=== PATIENT | male | born 1935 | race Caucasian/White ===

== ENCOUNTER 2017-05-20 08:11 | Outpatient (CLI) | payer MEDICARE ==
--- NOTE | 2017-05-20 10:17 | PRG ---
DATE OF SERVICE: 05/20/2017 SUBJECTIVE: An 81-year-old male returns today for left heel ulceration, had been seeing Dr. Ellis for the last several weeks, has been getting Promogran, Silverlon and Mepilex dressing changes, has been wearing an offloading boot, has been seeing some improvement in the wound size. Denies any na usea, vomiting, fevers or chills. PHYSICAL EXAMINATION: Ulceration of the left plantar lateral heel measures 2 cm x 1.3 cm x 0.1 cm. It has 50% slough and 50% granulation tissue. There is no purulent drainage. Wound does not probe to deeper tissues or bone. No periwound erythema, edema or warmth. ASSESSMENT: Pressure ulceration unstageable to the left heel. PLAN: 1. Full thickness debridement of the subcutaneous tissue layer, removing all biofilm and nonviable tissue within the wound base down to a bleeding granular wound base. Patient tolerated the procedur e well. 2. We are going to continue with the Promogran, Silverlon, and Mepilex dressing changes twice a wee k and he will follow back with me in 2 weeks.
== END 2017-05-20 08:12 | disposition home or self-care (01) ==
LOC: WCC 08:11
PROVIDERS: ATTEND Podiatrist Foot & Ankle Surgery
DX: L89.620 Pressure ulcer of left heel, unstageable (principal)
CPT/HCPCS: 11042

== ENCOUNTER 2017-06-03 10:06 | Outpatient (CLI) | payer MEDICARE ==
--- NOTE | 2017-06-03 12:19 | PRG ---
DATE OF SERVICE: 06/03/2017 SUBJECTIVE: An 81-year-old male returns today for left heel ulceration. He has been doing well wit h dressing changes, no concern at this time. He has continued to wear boot for offloading purposes. OBJECTIVE: Left heel ulceration has healed. There is a well-adhered scab to the heel measuring 1 c m diameter, but no underlying ulceration. No drainage, no periwound erythema or edema. ASSESSMENT: Left heel pressure ulceration, unstableable, now stage 0 or 1 pre-ulcerative area. PLAN: 1. The patient to continue with offloading boot whenever supine. 2. Moisturizing lotion and open to the air on the wound site. 3. The patient will return as needed.
[2017-06-03] MEDS ORDERED: Sodium Chloride 0.9% 15 ML NEB ONE (16:23)
== END 2017-06-03 10:07 | disposition home or self-care (01) ==
LOC: WCC 10:06
PROVIDERS: ATTEND Podiatrist Foot & Ankle Surgery
DX: L89.620 Pressure ulcer of left heel, unstageable (principal)
CPT/HCPCS: 36416; 97602; A4218

== ENCOUNTER 2017-06-09 08:15 | Outpatient (CLI) | payer MEDICARE ==
--- NOTE | 2017-06-09 10:09 | PRG ---
DATE OF SERVICE: 06/09/2017 HISTORY: Mr. Mathew Perkins is a very pleasant 81-year-old gentleman accompanied by his darby r who [facility] for evaluation of an ulceration of the right lateral lower leg. Previously for the ulceration the patient received treatment with Promogran, Silverlon, Webril, and the 3M Coban 2 layer compression system. The patient's daughter states that Mr. Perkins developed a brasions of the right foot from compression wraps applied by Home Health. The patient has no other complaints today. He denies any fever or chills. PHYSICAL EXAMINATION: VITAL SIGNS: Temperature 98.4, pulse 70, respirations 18, blood pressure 107/57. Accu-Chek 142. EXTREMITIES: An ulceration of the right lateral lower leg is present which measures approximately 0 .9 x 0.5 cm. The dimensions of the wound at the time of the patient's visit on 04/27/2017 were appr oximately 1.2 x 0.5 cm. Granulation tissue is present within the wound margins. Nonviable tissue p resent within the wound margins was debrided with an excisional full-thickness debridement. No puru lent drainage is associated with the wound. No erythema of the skin surrounding the wound is presen t. No maceration of the skin of the periwound is noted. A posterior tibial pulse is palpable on th e right. No significant edema of the right foot or lower leg is present on exam today. ASSESSMENT AND PLAN: 1. Right lateral lower leg ulceration. Promogran, Silverlon, Webril, and the 3M Coban two-layer co mpression system will be applied to the right lateral lower leg ulceration today. Orders will be tr ansmitted to Home Health for the compression wrap to be discontinued in 1 week. At this time, the p atient is to receive dressing changes of Promogran, Silverlon and Mepilex border 3 times per week af ter cleansing and irrigation. The patient and his daughter understand and are in agreement with the preceding treatment plan. The patient's daughter will contact the clinic to schedule an appointmen t if the ulceration fails to heal with the preceding dressing changes. 2. Diabetes mellitus. The patient's Accu-Chek in clinic today is 142. The patient has been remind ed that for optimal wound healing, his blood glucoses should remain below 150. 3. Atrial fibrillation. 4. Congestive heart failure. 5. Coronary artery disease. 6. Aortic stenosis. 7. Tricuspid regurgitation. 8. Nephrolithiasis. 9. Chronic kidney disease. 10. Anemia. 11. Protein calorie malnutrition. 12. Benign prostatic hypertrophy. 13. History of gastroesophageal reflux disease.
== END 2017-06-09 08:16 | disposition home or self-care (01) ==
LOC: WCC 08:15
PROVIDERS: ATTEND Family Medicine
DX: E11.622 Type 2 diabetes mellitus with other skin ulcer (principal); L97.919 Non-pressure chronic ulcer of unspecified part of right lower leg with unspecified severity; E11.22 Type 2 diabetes mellitus with diabetic chronic kidney disease; N18.9 Chronic kidney disease, unspecified; I50.9 Heart failure, unspecified; I48.91 Unspecified atrial fibrillation; I35.0 Nonrheumatic aortic (valve) stenosis; I25.10 Atherosclerotic heart disease of native coronary artery without angina pectoris; I07.1 Rheumatic tricuspid insufficiency; N20.0 Calculus of kidney; E46 Unspecified protein-calorie malnutrition; N40.0 Benign prostatic hyperplasia without lower urinary tract symptoms; Z87.898 Personal history of other specified conditions
CPT/HCPCS: 11042

== ENCOUNTER 2017-07-16 00:13 | Emergency (ER) | payer MEDICARE | END 2017-07-16 01:25 | disposition home or self-care (01) | LOC: SCSER 00:13 | DX: T83.091A Other mechanical complication of indwelling urethral catheter, initial encounter (principal); D50.9 Iron deficiency anemia, unspecified; E11.9 Type 2 diabetes mellitus without complications; E78.5 Hyperlipidemia, unspecified; I48.91 Unspecified atrial fibrillation; I50.9 Heart failure, unspecified; K21.9 Gastro-esophageal reflux disease without esophagitis; N18.9 Chronic kidney disease, unspecified; N40.0 Benign prostatic hyperplasia without lower urinary tract symptoms | CPT/HCPCS: 99283 ==

== ENCOUNTER 2018-03-12 11:27 | Emergency (ER) | payer MEDICARE | END 2018-03-12 12:42 | disposition short-term general hospital (02) | LOC: SCSER 11:27 | DX: T83.091A Other mechanical complication of indwelling urethral catheter, initial encounter (principal); N40.0 Benign prostatic hyperplasia without lower urinary tract symptoms; R31.9 Hematuria, unspecified; K21.9 Gastro-esophageal reflux disease without esophagitis; D50.0 Iron deficiency anemia secondary to blood loss (chronic); N18.9 Chronic kidney disease, unspecified; I48.91 Unspecified atrial fibrillation; E11.9 Type 2 diabetes mellitus without complications; E78.5 Hyperlipidemia, unspecified ==

== ENCOUNTER 2018-03-12 12:43 | Inpatient (IN) | payer MEDICARE ==
[2018-03-12] MEDS ORDERED: Lidocaine 2% Jelly 5 ML TUBE ONE (13:42)
[2018-03-12] MEDS ORDERED: cefTRIAXone\\ROCEPHIN 1 GM VIAL ONE (14:23)
[2018-03-12 15:14] LABS: Hemoglobin 11.5 g/dL (14.0-18.0); Mean Corpuscular HGB CONC 33.7 g/dL (32.0-36.0); Mean Corpuscular Hemoglobin 28.9 pg (27.0-31.0); Mean Corpuscular Volume 85.7 fL (78.0-98.0); Mean Platelet Volume 8.2 fL (7.4-10.4); Platelet Count 200 thou/uL (130-400); RBC Distribution Width 15.3 % (11.5-14.5); Red Blood Cell (RBC) Count 3.98 mill/uL (4.70-6.10); White Blood Cell (WBC) Count 2.5 thou/uL (4.8-10.8)
--- NOTE | 2018-03-12 15:21 | RAD ---
FRONTAL VIEW CHEST: COMPARISON: 01/28/17. INDICATION: Fever and tachycardia. FINDINGS: Cardiac silhouette is prominent in size, accentuated by portable technique. No lobar consolidation o r effusion. No discrete pneumothorax. There is osseous degenerative change and vascular calcificati on. IMPRESSION: No focal consolidation. POS: [facility]
[2018-03-12 15:23] LABS: Bilirubin Moderate (Negative); Blood, Urine Large (Negative); Clarity TURBID (Clear); Glucose, Urine (Dipstick) Negative (Negative); Leukocyte Large (Negative); Nitrite Negative (Negative); Protein, Urine (Dipstick) 300 mg/dL (Neg-Trace)
[2018-03-12] MEDS ORDERED: Acetaminophen 500 MG TAB ONE (15:23)
[2018-03-12 15:25] LABS: Bacteria/HPF 2+ HPF (None Seen)
[2018-03-12 15:26] LABS: Pathc Cast-AUWi Flag 43.61 (0-2.49); Yeast-AUWi Flag 514.9 (0-25.0)
[2018-03-12 15:33] LABS: Anisocytosis SLIGHT = 6-15 cells (100X) (0-5/hpf); Band 16 % (5-11); Eosinophils 1 % (0-10); Hypochromia SLIGHT = 6-15 cells (100X) (0-5/hpf); Lymphocytes 3 % (21-51); MDiff Complete? YES; Monocytes 1 % (0-10); Neutrophil 79 % (42-75); PLT Morphology Comment Appears Adequate
[2018-03-12 15:33] LABS: Hyaline Casts/LPF NONE SEEN LPF (0-3 Hyaline); Manual Microscopic Reviewed? No Path Casts Seen; RBC/HPF GREATER THAN 50-TNTC HPF (0-3); Yeast-All Forms None Seen HPF (None Seen)
[2018-03-12 15:34] LABS: ALT (SGPT) 41 U/L (8-55); AST (SGOT) 44 U/L (5-34); Albumin 3.8 g/dL (3.4-4.8); Alkaline Phosphatase 106 U/L (40-150); Anion Gap 17 mmol/L (10-20); BUN (Urea Nitrogen) 20 mg/dL (8.4-25.7); Calc. Creatinine Clearance 0 mL/min (70-130); Carbon Dioxide 17 mmol/L (23-31); Chloride 106 mmol/L (98-107); Estimated GFR-MDRD 41; Globulin 3.8 g/dL (2.4-3.5); Glucose 169 mg/dL (83-110); Potassium 4.3 mmol/L (3.5-5.1); Protein, Total 7.6 g/dL (5.8-8.1); Sodium 136 mmol/L (136-145)
--- NOTE | 2018-03-12 16:10 | CON ---
DATE OF CONSULTATION: 03/12/2018 CONSULTING PHYSICIAN: Ar Lara M.D. CONSULTED PHYSICIAN: Javi Arambula M.D. REASON FOR CONSULTATION: Urinary retention with difficulty obtaining a catheterization. HISTORY OF PRESENT ILLNESS: Mr. Perkins is an 82-year-old white male who is currently a patient of [facility]. He has longstanding prostate problems and urinary retention. He is able to only urinate small amounts on his own, but due to significant issues with urinary retention and prior episodes of gross hematuria, he has had a catheter placed and has been managed with an indwelling Payne catheter for the past 2 years which has been changed by home health nursing every 30 days. Last night, the oh brown noted that he did not have any urine output in his bag over the course of the entire day. Home health nursing had come by this morning to attempt to flush the catheter, but they were not able to irrigate adequately. Therefore, they attempted to change the catheter; however, the catheter would n ot go back into the bladder. After several attempts they transferred him to the emergency room in [facility] where the nursing staff there attempted to place a Payne catheter, after 3 or 4 attempt s or blood starting to appear at the meatus, I was consulted for further assistance with catheter abundio cement. I recommended he be transferred from the [place] [facility] to the Main ER at [facility] in case he needs a cystoscopy. Upon his arrival in my discussion with the patient, he sta nisha that he is not having any significant bladder pain. He is having some back discomfort and some a bdominal discomfort and states he is cold and a little nauseated, but otherwise is not really complai ector of any other significant symptoms or issues. He denies any bladder spasms. He did spontaneousl y void once between being discharged to the ER in [place] and coming here, but he states he h ad no control or volitional void and it just came out on its own. There were discussions with Dr. Mejia bullock about possibly attempting a voiding trial in the future versus placement of a suprapubic cathet er. ALLERGIES: None. CURRENT MEDICATIONS: No medications on file. PAST MEDICAL HISTORY: 1. Gastroesophageal reflux disease. 2. Benign prostatic hypertrophy. 3. Urinary retention. 4. Iron deficiency anemia. 5. Chronic kidney disease. 6. Angina. 7. Arrhythmia. 8. Atrial fibrillation. 9. Type 2 diabetes. 10. Hyperlipidemia. 11. Aortic valve stenosis. 12. Coronary artery disease. PAST SURGICAL HISTORY: 1. Cardiac stents. 2. Removal of kidney stones. SOCIAL HISTORY: The patient denies alcohol abuse or illicit drug use or smoking. He lives with his daughter. FAMILY HISTORY: Noncontributory. REVIEW OF SYSTEMS: A 12-point review of systems is unremarkable other than what was commented on the HPI. PHYSICAL EXAMINATION: VITAL SIGNS: Temperature 98.5, pulse 84, respirations 20, blood pressure 152/79, saturation 100% on room air. GENERAL: Appears cold, but otherwise appears stated age, is communicative and alert. HEENT: Normocephalic, atraumatic. Large price. Sclerae nonicteric. Pupils symmetric and round. T rachea midline. Moist mucous membranes. CARDIOVASCULAR: Irregularly irregular rhythm, normal rate, normal S1 and S2. Symmetric pulses. CHEST: No increased work of breathing. Symmetric expansion of lungs clear anteriorly. ABDOMEN: Soft, mildly tender to palpation diffusely. No rebound, guarding or peritoneal signs. No organomegaly. Nondistended. No obvious hernias. GENITOURINARY: Patient is uncircumcised. There is a large amount of blood at the meatus. Testes ar e bilaterally descended. Scrotum without edema. DAYANNA is deferred at this time. EXTREMITIES: No clubbing, cyanosis or edema. MUSCULOSKELETAL: No joint deformities or joint erythema noted. The patient has adequate range of mo tion. NEUROLOGIC: Cranial nerves II-XII appear grossly intact. No focal sensory or motor deficits identif ied. SKIN: Warm, dry, somewhat cool. No rashes or lesions. No pallor. PSYCHIATRIC: Alert and oriented x2. Appropriate mood and affect. LABORATORY AND X-RAY FINDINGS: No labs are currently taken at this time. PROCEDURE: After noting that the patient had blood at his meatus, I did not recommend attempted cath eter placement attempts to blindly. I recommended a cystoscopic-guided catheterization. I discussed this with the family and the patient. They have agreed to proceed forward. The patient was prepped and draped in usual sterile fashion. A flexible cystoscope was guided with ease through the urethra . The penile urethra was unremarkable. The bulbar urethra showed a large blood clot with a 6 o'cloc k midline split and tear indicating a false passage. The urethral sphincter was noted to be anterior to this and the cystoscope was guided through this. The prostate was hypertrophic. The bladder antonella wed significant trabeculation and cellules. A full cystoscopy could not be performed as the bladder could not be distended adequately secondary to patient having severe bladder spasms. Once the cystos cope was in the bladder, an Amplatz Super Stiff wire was placed through the cystoscope into the bladd er. The cystoscope was then removed and an 18 [employer] tip catheter was advanced over the Sup er Stiff wire to the bladder with ease. The Super Stiff wire was then removed and 10 mL of sterile w ater placed into the balloon. There was return of rakesh colored urine which was affixed to the patie nt's leg with a Andrea strap. The patient tolerated the procedure well. ASSESSMENT AND PLAN: This is an 82-year-old white male with urinary retention, presumably secondary to benign prostatic hypertrophy with false passage causing the bleeding and inability to replace the catheter. Now that his catheter has been replaced, I would recommend prophylaxis with Rocephin 1 gra m IV as a single dose. He can be given trospium 20 mg p.o. b.i.d. for bladder spasms and tramadol fo r pain control. He can be discharged home so long as there is no other gastrointestinal other medica l issues that warrant investigation per the ER team. He can follow up with Dr. Meyers but his joanne ter should be good for 30 days. If the patient fails or future void trial, I would give strong consi deration to a suprapubic tube as given that he has had a history of false passage. Now there is risk for scar tissue and recurrent false passage again in the future.
[2018-03-12] MEDS ORDERED: Piperacillin/Tazobactam 4.5 GM VIAL ONE (16:13)
[2018-03-12 16:29] LABS: Troponin I Less than 0.010 ng/mL (< 0.028)
[2018-03-12 17:52] VITALS: BMI 30.3
[2018-03-12] MEDS: Sodium Chloride 0.9% 1,000 ML IV SCH (19:47)
[2018-03-12] MEDS: Amiodarone 200 MG TAB PO SCH (21:48)
[2018-03-12] MEDS: Tamsulosin HCl 0.4 MG CAP PO SCH (21:48)
[2018-03-12] MEDS: Montelukast Sodium 10 mg Tablet PO SCH (21:48)
[2018-03-12] MEDS: Atorvastatin Calcium 20 MG TAB PO SCH (21:48)
[2018-03-12] MEDS: Famotidine 20 MG TAB PO SCH (21:49)
[2018-03-12] MEDS: Apixaban 2.5 MG TAB PO SCH (21:49)
--- NOTE | 2018-03-12 22:48 | ULT ---
RENAL ULTRASOUND: Comparison: 11-18-16 History: Hematuria, chronic kidney disease. Evaluate for obstruction. Technique: Multiplanar grayscale and color doppler images were obtained in a renal ultrasound. FINDINGS: There are anechoic cysts in both kidneys. The largest is seen on the right measuring 3.9 cm in size. There is no evidence of hydronephrosis. There appears to be a Staghorn calculus in the right kidney m easuring 1.3 cm in size. The kidneys measure 11.7 and 11.4 cm in length on the right and left, respec tively. A Payne catheter decompresses the urinary bladder. IMPRESSION: 1. Bilateral renal cysts. 2. Nonobstructing right renal calcification. POS: [facility]
[2018-03-12] MEDS: Piperacillin/Tazobactam 3.375 GM in Sodium Chloride 0.9% 100 ML IVPB SCH (23:37)
[2018-03-12] MEDS: Acetaminophen 325 MG TAB PO PRN (23:37)
--- NOTE | 2018-03-13 01:42 | HP ---
DATE OF SERVICE: 03/12/2018 CHIEF COMPLAINT: Abdominal pressure. HISTORY OF PRESENT ILLNESS: This is an 82-year-old male with history of atrial fibrillation and coronary artery disease, on full anticoagulation; heart failure of unknown severity; kidney stones; chronic kidney disease stage 3-4, by chart review; anemia; BPH with a chronic Shaw catheter; GERD; who presents to the emergency room with some abdominal pressure. All the history is obtained from the patient's daughter as the patient reports he is feeling alright now. He is able to tell me that he has not felt well due to abdominal pressure and estimates for a few weeks. Per his daughter, she notes that yesterday something happened with his catheter (some type of trauma, perhaps while the patient was sleeping) and there was blood inside the catheter bag. The patient called to her and she visualized that urine was still flowing, and there was no significant bleeding. She checked on him last night and the urine continued to drain and the catheter was flushed with normal anticipated return. This morning, there was no output in the Shaw bag and the patient was complaining of abdominal pressure. She flushed it with 60 mL of fluid and had return of about 500 mL of urine and the patient's abdominal pressure was relieved. At 9:00 a.m., the patient called his daughter and complained of his stomach was hurting and she again flushed it the shaw catheter with return of 500 mL. This did not seem quite right, and so she flushed again and there was no return. She called the [facility] to come replace the catheter. Around 10:30, they removed the catheter and attempted placement of a new one, followed by visualizing about 30 mL of mackenzie blood and pain prior to filling the catheter balloon. The catheter was then removed and the patient was directed to the emergency room. The patient started off at [facility] with the attempt of placement of a Shaw catheter. This was unsuccessful and in consultation with Dr. Arambula, the patient was transferred to [facility] in [place]. Dr. Arambula was able to place a catheter, and visualized the false passage that was responsible for the bleeding. While in the emergency room, the patient was found to be febrile and tachycardic with a temperature rate of 102.5 and Hospitalist called for admission for concern of sepsis. The patient's daughter denies any change of his behavior, states that he has been eating and drinking fluids, and that he is acting appropriately. Today, she noticed that he was 'off', mistaking his age which is unusual, as she states he is normally very sharp. She also noted here in the emergency room, chills. None of this was seen prior to today. His last history of a UTI was approximately a year ago. In the emergency room, the patient treated with Rocephin 1 gram IV, of which the daughter notes that at least some infiltrated into his right arm, Tylenol 1 gram, 1.5 liters of normal saline and 4.5 grams of Zosyn and Hospitalist called for admission. PAST MEDICAL HISTORY: Confirmed with the patient's daughter, 1. Coronary artery disease with history of stent placement. 2. Heart failure, unknown severity. 3. Atrial fibrillation, on full anticoagulation. 4. Diabetes mellitus. 5. Aortic stenosis. 6. Nephrolithiasis. 7. Chronic kidney disease, stage 3-4. 8. Anemia. 9. Benign prostatic hypertrophy with chronic Shaw catheter. History of hematuria secondary to the shaw catheter that has always resolved without stopping his eliquis. 10. Gastroesophageal reflux disease. 11. Chronic left shoulder pain. 12. Presbycusis. 13. Weakness, uses a wheelchair. 14. Dyslipidemia. PAST SURGICAL HISTORY: 1. Nephrolithiasis. 2. Tonsillectomy. 3. Cardioversion for atrial fibrillation about 6 months ago. ALLERGIES: No known drug allergies. MEDICATIONS: Confirmed with the list brought in by the daughter, 1. Carvedilol 3.125 mg b.i.d. 2. Slow-Mag 64 mg b.i.d. 3. Metformin 500 mg b.i.d. 4. Vitamin C 500 mg b.i.d. 5. Eliquis 5 mg b.i.d. 6. Protonix 40 mg daily. 7. Aspirin 81 mg daily. 8. Pepcid 20 mg b.i.d. 9. Ferrous sulfate b.i.d. 10. Multivitamin at bedtime. 11. Flomax 0.4 mg at bedtime. 12. Folic acid 1 mg at bedtime. 13. Vitamin B12 of 1000 mcg at bedtime. 14. Singulair 10 mg at bedtime. 15. Probiotic at bedtime. 16. Amiodarone 200 mg at bedtime. 17. Lipitor 20 mg at bedtime. REVIEW OF SYSTEMS: The patient without any complaint and stated negative to all review of systems. I am uncertain of the accuracy of this. Per his daughter only as noted above. SOCIAL HISTORY: The patient lives with his daughter, Melanie, who is his surrogate decision maker. He is a FULL CODE. No alcohol or tobacco. FAMILY HISTORY: Significant for diabetes. PHYSICAL EXAMINATION: VITAL SIGNS: Temperature 102.5, pulse 104, respirations 20, saturations 98%, blood pressure 115/67. GENERAL: He is awake, alert and responsive, in no apparent distress. HEENT: His pupils are equal and round. Extraocular movements are intact. Oral mucosa is pink and moist. He has a denture plate on the top gums, but not on the bottom. He is edentulous. NECK: Supple, nontender. LYMPHATICS: No palpable cervical or supraclavicular lymphadenopathy. LUNGS: Clear to auscultation. No audible wheezing, rhonchi or rales. HEART: Normal S1, S2, regular rate and rhythm, no audible murmurs. ABDOMEN: Soft with present bowel sounds. Mild tenderness to palpation in the suprapubic area. No rebound or guarding and no palpable abnormalities. EXTREMITIES: No clubbing, cyanosis, or edema. MUSCULOSKELETAL: He does have a laterally deviated left foot, which he reports is secondary to a history of trauma. The patient does have an area of induration in his right forearm secondary to infiltration of Rocephin. No erythema. NEUROLOGIC: No focal deficits. LABORATORY DATA AND IMAGIN. CBC: 2.5, 11.5, 34.1, 200. 2. Renal panel: 136, 4.3, 106, 17, 20, 1.61, 169. 3. Lactic acid is 4.7. 4. Total bilirubin 1, AST 44, ALT 41, alkaline phosphatase 106, total protein 7.6, albumin 3.8. 5. Urine shows protein, ketones, moderate bilirubin, large leukocyte esterase, greater than 50 red blood cells and white blood cells, 2+ bacteria. 6. Chest x-ray personally reviewed is negative for acute process. 7. EKG personally reviewed, sinus rhythm, tachycardic to 113, flattened T waves , no ST change. It does have a prolonged QT interval with a QT corrected of 455. 8. Urine culture from 2017 - E coli vega-sensitive, and Enterococcus and a gram negative marjan only resistant to tetracycline. IMPRESSION: 1. Sepsis attributed to urinary tract infection in this patient with a chronic indwelling Shaw catheter and recent obstruction. 2. Catheter obstruction with urinary retention, and hematuria secondary to trauma. 3. Prolonged QT interval. 4. Leukopenia - unknown etiology 5. Anemia - likely secondary to chronic kidney disease. 6. History of atrial fibrillation, on chronic anticoagulation. 7. History of congestive heart failure, unknown severity. 8. Coronary artery disease with history of stent. 9. Chronic kidney disease, stage 3-4, current labs are consistent with May, although creatinine is higher than it was a year ago. 10. Diabetes mellitus, unknown control. 11. Dyslipidemia. 12. Chronic shoulder pain. 13. Weakness and wheelchair use. 14. Presbycusis. 15. Rocephin infiltration and induration of the right forearm. PLAN: 1. Admission to the hospital. 2. Monitoring on telemetry, repeating the lactic acid, continuing the Zosyn for Pseudomonas coverage and possible other multidrug resistant bacteria given the indwelling Shaw catheter. 3. Monitoring the blood and urine cultures, the urine output and the hematuria - urine is currently medium brown in color with red blood cell sediment. 4. With any decompensation, we will need second antibiotic. Will continue zosyn at higher sepsis dosing- adjusted for his renal function. 5. Avoiding medications that can prolong the QT interval and monitor on telemetry. 6. Renally dosing his Eliquis discussed this with his daughter as his creatinine is greater than 1.5 and age greater than 80 indicates 2.5 mg b.i.d. Discussed with the patient's daughter that this may need to be held if the hematuria persists/worsens or any bleeding concerns. 7. Continuing his home medications with hold parameters on the carvedilol. 8. IV fluid hydration as the patient's urine is quite dark, we will obtain an ultrasound of his kidneys in addition we will obtain an echocardiogram of his heart to try and understand or characterize current systolic function. 9. Follow his creatinine which is consistent with May this year, but higher than a year ago and recheck lactic acid level again in 6 hours. 10. Follow the leukopenia - unknown if it is lower now than in the past due to infection or another reason. Trend hemoglobin and monitor for hematuria. 11. Continuing his other home medications as ordered. 12. Monitoring area on right forearm to be outlined from david doyle. RN called pharmacy and no anticipated problem from the medication. 13. Deep venous thrombosis prophylaxis. He is fully anticoagulated with Eliquis. 14. Gastrointestinal prophylaxis not indicated. He is on famotidine and Protonix and we will continue those. 15. Code status is FULL, confirm this with patient and his daughter. 16. The patient is at high risk given age, comorbidities, and current presentation. 17. I reviewed the plan of care with the patient and his daughter separately, no questions or further needs at end of evaluation, they both demonstrate understanding and agree. [place]
[2018-03-13 02:23] LABS: Lactic Acid 3.8 mmol/L (0.5-2.2)
[2018-03-13 02:44] LABS: ALT (SGPT) 31 U/L (8-55); AST (SGOT) 28 U/L (5-34); Albumin 3.1 g/dL (3.4-4.8); Alkaline Phosphatase 53 U/L (40-150); Anion Gap 15 mmol/L (10-20); BUN (Urea Nitrogen) 21 mg/dL (8.4-25.7); Bilirubin, Total 0.7 mg/dL (0.2-1.2); Calc. Creatinine Clearance 46 mL/min (70-130); Calcium 8.1 mg/dL (7.8-10.44); Carbon Dioxide 17 mmol/L (23-31); Chloride 105 mmol/L (98-107); Estimated GFR-MDRD 41; Globulin 2.9 g/dL (2.4-3.5); Glucose 218 mg/dL (83-110); Potassium 3.9 mmol/L (3.5-5.1); Sodium 133 mmol/L (136-145)
[2018-03-13 03:55] LABS: #Lymphocytes 0.5 thou/uL (1.20-3.40); #Monocytes 0.8 thou/uL (0.11-0.59); %Basophils 0.1 % (0.0-1.0); %Eosinophils 0.2 % (0.0-10.0); %Lymphocytes 3.4 % (21.0-51.0); %Monocytes 5.4 % (0.0-10.0); %Neutrophils 90.9 % (42.0-75.0); Hemoglobin 9.5 g/dL (14.0-18.0); Mean Corpuscular HGB CONC 33.4 g/dL (32.0-36.0); Mean Corpuscular Hemoglobin 28.6 pg (27.0-31.0); Mean Corpuscular Volume 85.6 fL (78.0-98.0); Mean Platelet Volume 7.9 fL (7.4-10.4); Platelet Count 157 thou/uL (130-400); RBC Distribution Width 15.3 % (11.5-14.5); Red Blood Cell (RBC) Count 3.33 mill/uL (4.70-6.10); White Blood Cell (WBC) Count 14.3 thou/uL (4.8-10.8)
[2018-03-13] MEDS: Piperacillin/Tazobactam 3.375 GM in Sodium Chloride 0.9% 100 ML IVPB SCH ×4 (05:43→16:28)
[2018-03-13] MEDS: Ferrous Sulfate 325 MG TAB PO SCH ×2 (09:29→16:22)
--- NOTE | 2018-03-13 09:29 | CON ---
DATE OF CONSULTATION: 03/13/2018 CONSULTING PHYSICIAN: Dr. Sera Arciniega REASON FOR CONSULTATION: IMCU consultation. The consultation encompassed 70 minutes time, of that time, greater than 50% spent with the patient a nd/or on the patient's unit in the hospital. HISTORY OF PRESENT ILLNESS: An 82-year-old male who has an indwelling Payne that became nonfunctiona l at home yesterday. Home Health tried to change it out and could not. He subsequently presented to [facility] ER where attempts were made to change it out and could not be done. He was carr bsequently brought here where Dr. Arambula had to replace the Payne with a cystoscope. The patient is growing out gram-negative rods and gram-positive cocci on cultures obtained and he is currently bein g treated with antibiotics. He feels well and has no acute complaints at the current time. PAST MEDICAL HISTORY: 1. Prostatic hypertrophy with chronic indwelling Payne. 1. Coronary artery disease. 2. Congestive heart failure. 3. Chronic atrial fibrillation requiring full anticoagulation. 4. Diabetes mellitus. 5. Aortic stenosis. 6. Kidney stones. 7. Chronic kidney disease. 8. Anemia. 9. Osteoarthritis of the left shoulder. 10. Hearing loss. 11. Hyperlipidemia. 12. Gastroesophageal reflux. PAST SURGICAL HISTORY: 1. Nephrolithiasis with stone removal. 2. Tonsillectomy. 3. Cardioversion for atrial fibrillation. 4. Payne catheter placement. ALLERGIES: None. MEDICATIONS PRIOR TO ADMISSION: Carvedilol, magnesium, metformin, vitamin C, Eliquis, Protonix, aspi rin, Pepcid, iron sulfate, multivitamin, Flomax, folate, vitamin B12, Singulair, probiotic, amiodaron e, Lipitor. REVIEW OF SYSTEMS: Twelve point review of systems otherwise negative. SOCIAL HISTORY: The patient does not smoke, does not consume alcohol, does not use illicit drugs. FAMILY MEDICAL HISTORY: Remarkable for diabetes. PHYSICAL EXAMINATION: VITAL SIGNS: Temperature 98.9 with a T-max of 102.5, pulse 81, respirations 16, O2 saturation 97%, b lood pressure 101/50. GENERAL: He is awake and alert, in no distress. HEENT: Unremarkable. NECK: No adenopathy, JVD, no bruits. LUNGS: Clear without wheezing or rhonchi. CARDIAC: S1, S2 regular, without murmur or gallop. ABDOMEN: Soft, nontender, nondistended. GROIN: He has a Payne catheter in place. He has some tinea rash present in the right side of the gr oin. EXTREMITIES: No clubbing, cyanosis, or edema. LABORATORY DATA: White blood cell count 14.3, hematocrit 28.5, platelet count 157. White blood cell count 14.3, sodium 132, potassium 3.9, chloride 105, CO2 17, BUN 21, creatinine 1.6, glucose 218, la ctate 3.8. Urinalysis showed too numerous to count white blood cells. ASSESSMENT: 1. Urosepsis sepsis with stable hemodynamic status. 2. Chronic atrial fibrillation. 3. History of congestive heart failure. PLAN: From my standpoint, he can be moved out to the medical floor as he is doing well. Continue an tibiotic therapy.
[2018-03-13] MEDS: Apixaban 2.5 MG TAB PO SCH ×2 (09:30→20:24)
[2018-03-13] MEDS: Aspirin 81 mg Enteric Coated Tablet PO SCH (09:30)
[2018-03-13] MEDS: Famotidine 20 MG TAB PO SCH (09:30)
[2018-03-13] MEDS: Sodium Chloride 0.9% 1,000 ML IV SCH ×2 (09:31→23:10)
[2018-03-13] MEDS: Carvedilol 3.125 MG TAB PO SCH ×2 (09:31→16:22)
[2018-03-13] MEDS: Acetaminophen 325 MG TAB PO PRN (09:38)
[2018-03-13] MEDS: Piperacillin/Tazobactam 3.375 GM, Admixture Fee 1 EACH in Sodium Chloride 0.9% 100 ML IVPB SCH ×2 (16:29→23:10)
[2018-03-13] MEDS ORDERED: Piperacillin/Tazobactam 3.375 GM, Admixture Fee 1 EACH in Sodium Chloride 0.9% 100 ML IVPB SCH (18:00)
[2018-03-13 19:52] LABS: Bilirubin Negative (Negative); Blood, Urine Large (Negative); Clarity CLOUDY (Clear); Glucose, Urine (Dipstick) Negative (Negative); Leukocyte Large (Negative); Nitrite Negative (Negative); Protein, Urine (Dipstick) Trace mg/dL (Neg-Trace); Specific Gravity, Urine 1.006 (1.002-1.036); Urobilinogen 0.2 mg/dL (0.2-1.0); pH, Urine 5.5 (5.0-9.0)
[2018-03-13 19:54] LABS: Bacteria/HPF None Seen HPF (None Seen); Hyaline Casts/LPF 0-3 HYALINE CAST LPF (0-3 Hyaline); Pathc Cast-AUWi Flag 0.43 (0-2.49); Squamous Epithelial 0-3 HPF (0-3); WBC/HPF 21-50 HPF (0-3)
[2018-03-13 20:05] LABS: RBC/HPF 0-3 HPF (0-3); Renal Epithelial None Seen HPF (0-3); Transitional Epithelial NONE SEEN HPF (0-3); Yeast-All Forms None Seen HPF (None Seen)
[2018-03-13] MEDS: Montelukast Sodium 10 mg Tablet PO SCH (20:23)
[2018-03-13] MEDS: Tamsulosin HCl 0.4 MG CAP PO SCH (20:23)
[2018-03-13] MEDS: Amiodarone 200 MG TAB PO SCH (20:23)
[2018-03-13] MEDS: Atorvastatin Calcium 20 MG TAB PO SCH (20:24)
[2018-03-14] MEDS: Piperacillin/Tazobactam 3.375 GM, Admixture Fee 1 EACH in Sodium Chloride 0.9% 100 ML IVPB SCH ×4 (04:42→23:11)
--- NOTE | 2018-03-14 07:36 | PDOC.EVN ---
Event Note - Event Note Event Note: late entry for 03/13/2018 h&p reviewed pt seen & examined pt's dtr and son @ bedside pt no new c/o, eating dinner per family grossly at baseline mentation denies any fevers/ chills/ palpitations/ chest pains/ dysuria exam gen: AAA, NAD, seated in hospital bed eating dinner independently cv: s1, s2, no m/r/g, pulses 2+ b/l UE resp: reasonable air movmt, no w/r/r, ctab, no conversational dyspnea abd:+ bs, soft, non ttp, shaw draining clear yellow urine with some debris in shaw bag ext: maee labs and imaging reviewed a/p question of UTI mixed swathi on initial UCx, will repeat on empiric abx apprec urology c/s - question from pts family if he will need a suprapubic due to difficulty with catheterization from false passage creation? bacteremia - question if urinary primary source empiric abx repeat blood cx echo 2D d/w patient's family pt at risk for deconditioning - PT sepsis 2/2 above improving diet: as sharan activity: as sharan dvt ppx
[2018-03-14] MEDS: Famotidine 20 MG TAB PO SCH (08:16)
[2018-03-14] MEDS: Ferrous Sulfate 325 MG TAB PO SCH ×2 (08:16→17:25)
[2018-03-14] MEDS: Carvedilol 3.125 MG TAB PO SCH ×2 (08:16→17:25)
[2018-03-14] MEDS: Aspirin 81 mg Enteric Coated Tablet PO SCH (08:17)
[2018-03-14] MEDS: Apixaban 2.5 MG TAB PO SCH ×2 (08:17→20:29)
[2018-03-14] MEDS: Sodium Chloride 0.9% 1,000 ML IV SCH (11:57)
[2018-03-14] MEDS: Acetaminophen 325 MG TAB PO PRN (11:59)
--- NOTE | 2018-03-14 13:30 | PDOC.PN ---
- Subjective Encounter Start Date: 03/14/18 Encounter Start Time: 07:15 Subjective: awake, no abd pain or nausea -: ate his breakfast, watching tv -: is fully oriented - Objective Resuscitation Status: Resuscitation Status FULL:Full Resuscitation MAR Reviewed: Yes Vital Signs & Weight: Vital Signs (12 hours) Temp Pulse Resp BP Pulse Ox 03/14/18 11:01 97.8 F 74 20 132/55 L 97 03/14/18 08:00 98.1 F 85 20 95 03/14/18 07:35 98.1 F 85 20 145/78 H 95 03/14/18 04:43 98.5 F 73 18 149/79 H 97 Weight Weight 205 lb 4.006 oz I&O: 03/13/18 03/14/18 03/15/18 06:59 06:59 06:59 Intake Total 1755 1300 Output Total 950 3175 Balance 805 -1875 Result Diagrams: 03/13/18 03:25 03/13/18 01:52 Additional Labs: Accuchecks 03/14/18 03/13/18 04:43 19:15 POC Glucose 119 H 133 H Phys Exam - Physical Examination HEENT: PERRLA, moist MMs Neck: no JVD, supple Respiratory: no rales, no rhonchi Cardiovascular: RRR, no significant murmur Gastrointestinal: soft, non-tender, positive bowel sounds shaw high col urine, no blood Musculoskeletal: no edema, pulses present Neurological: non-focal, moves all 4 limbs Psychiatric: normal affect, A&O x 3 Dx/Plan (1) Sepsis Code(s): A41.9 - SEPSIS, UNSPECIFIED ORGANISM Status: Acute Comment: klebsiella (2) Bacteremia Code(s): R78.81 - BACTEREMIA Status: Acute Comment: klebsiella and strep (3) UTI (urinary tract infection) Status: Acute Qualifiers: Urinary tract infection type: acute cystitis Hematuria presence: with hematuria Qualified Code(s): N30.01 - Acute cystitis with hematuria (4) BPH (benign prostatic hyperplasia) Code(s): N40.0 - BENIGN PROSTATIC HYPERPLASIA WITHOUT LOWER URINRY TRACT SYMP Status: Chronic Qualifiers: Lower urinary tract symptom presence: symptoms present Lower urinary tract symptom detail: urinary retention Qualified Code(s): N40.1 - Benign prostatic hyperplasia with lower urinary tract symptoms; R33.8 - Other retention of urine ; R33.8 - Other retention of urine (5) CKD (chronic kidney disease) stage 3, GFR 30-59 ml/min Code(s): N18.3 - CHRONIC KIDNEY DISEASE, STAGE 3 (MODERATE) Status: Chronic (6) Severe aortic stenosis Code(s): I35.0 - NONRHEUMATIC AORTIC (VALVE) STENOSIS Status: Chronic (7) Atrial fibrillation Code(s): I48.91 - UNSPECIFIED ATRIAL FIBRILLATION Status: Chronic Qualifiers: Atrial fibrillation type: chronic (8) Anemia Code(s): D64.9 - ANEMIA, UNSPECIFIED Status: Chronic Qualifiers: Anemia type: unspecified type Qualified Code(s): D64.9 - Anemia, unspecified (9) DM2 (diabetes mellitus, type 2) Status: Chronic Qualifiers: Diabetes mellitus exterminator termite insulin use: without assisted use Diabetes mellitus complication status: with kidney complications Diabetes mellitus complication detail: with chronic kidney disease Chronic kidney disease stage : stage 3 (moderate) Qualified Code(s): E11.22 - Type 2 diabetes mellitus with diabetic chronic kidney disease; N18.3 - Chronic kidney disease, stage 3 ( moderate); N18.3 - Chronic kidney disease, stage 3 (moderate); N18.3 - Chronic kidney disease, stage 3 (moderate) (10) CAD (coronary artery disease) Code(s): I25.10 - ATHSCL HEART DISEASE OF [place] CORONARY ARTERY W/O ANG PCTRS Status: Chronic Qualifiers: Coronary Disease-Associated Artery/Lesion type: [place] artery [place] vs. transplanted heart: [place] heart Associated angina: without angina Qualified Code(s): I25.10 - Atherosclerotic heart disease of [place] coronary artery without angina pectoris - Plan is on zosyn, await full culture results -: echo ef of 50%, mod to severe , no obvious vegetations -: on asp, eliquis, amiodarone, flomax and iron -: gentle iv hydration, may dc in am if eating well -: ID consultation, PT to mobilize as tolerated * . Review of Systems - Medications/Allergies Allergies/Adverse Reactions: Allergies Allergy/AdvReac Type Severity Reaction Status Date / Time No Known Drug Allergies Allergy Verified 11/17/16 01:21 Medications: Current Medications Acetaminophen (Tylenol) 650 mg PO Q6H PRN PRN Reason: Headache/Fever or Pain Last Admin: 07/10/18 11:59 Dose: 650 mg Amiodarone HCl (Cordarone) 200 mg PO [facility] Last Admin: 03/13/18 20:23 Dose: 200 mg Apixaban (Eliquis) 2.5 mg PO BID [facility] Last Admin: 03/14/18 08:17 Dose: 2.5 mg Aspirin (Ecotrin) 81 mg PO DAILY [facility] Last Admin: 03/14/18 08:17 Dose: 81 mg Atorvastatin Calcium (Lipitor) 20 mg PO HS [facility] Last Admin: 03/13/18 20:24 Dose: 20 mg Carvedilol (Coreg) 3.125 mg PO BID[facility] Last Admin: 03/14/18 08:16 Dose: 3.125 mg Famotidine (Pepcid) 20 mg PO DAILY [facility] Last Admin: 03/14/18 08:16 Dose: 20 mg Ferrous Sulfate (Feosol) 325 mg PO BID-[facility] Last Admin: 03/14/18 08:16 Dose: 325 mg Sodium Chloride (Normal Saline 0.9%) 1,000 mls @ 75 mls/hr IV .[id number] [facility] Last Admin: 03/14/18 11:57 Dose: 1,000 mls Piperacillin Sod/Tazobactam Sod 3.375 gm/ Miscellaneous Medication 1 each/ Sodium Chloride 100 mls @ 200 mls/hr IVPB 0500,1100,1700,2300 [facility] Last Admin: 03/14/18 11:59 Dose: 100 mls Montelukast Sodium (Singulair) 10 mg PO QPM [facility] Last Admin: 03/13/18 20:23 Dose: 10 mg Pantoprazole Sodium (Protonix) 40 mg PO DAILY [facility] Last Admin: 03/14/18 08:17 Dose: 40 mg Tamsulosin HCl (Flomax) 0.4 mg PO [facility] Last Admin: 03/13/18 20:23 Dose: 0.4 mg
[2018-03-14] MEDS: Montelukast Sodium 10 mg Tablet PO SCH (20:29)
[2018-03-14] MEDS: Tamsulosin HCl 0.4 MG CAP PO SCH (20:29)
[2018-03-14] MEDS: Amiodarone 200 MG TAB PO SCH (20:29)
[2018-03-14] MEDS: Atorvastatin Calcium 20 MG TAB PO SCH (20:29)
--- NOTE | 2018-03-15 01:59 | CON ---
DATE OF CONSULTATION: 03/14/2018 HISTORY OF PRESENT ILLNESS: An 82-year-old gentleman with history of atrial fibrillation on anticoag ulation, coronary artery disease with systolic CHF, history of nephrolithiasis and BPH with a chronic indwelling Payne catheter for the past few months, who has had some dysfunction of the urinary joanne ter with hematuria. Evidently, there was a development of obstruction without output. The catheter was flushed with return of urine. The abdominal pressure was relieved, but then the symptoms recurre d. There was another flushing attempt which was successful and family member called home health to r eplace the catheter. Catheter was then removed and replaced. Unfortunately, obviously the replaceme nt was a faulty and most likely established an extra urethral course and the patient ended up going t o the emergency room at [facility]. A repeat attempt was unsuccessful. The moraima ent ended up transferred to [facility] and Dr. Arambula placed a new catheter and/or visualiz ation. There was obvious false passage, which has been introduced probably by the home health nurse. On arrival, his temperature was 102.5 and was given broad spectrum coverage, IV fluids. He is now feeling much better. He is awake, oriented, pleasant, denies headaches, no visual symptoms, sore thr oat, odynophagia or dysphagia, no cough or sputum production or chest pain, no abdominal pain any kelsy audrey. Again, no abdominal pain any longer. 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 ALLERGIES: None. MEDICATIONS: Coreg, Slow-Mag, metformin, Eliquis, Protonix, aspirin, Pepcid, ferrous sulfate, multiv itamins, Flomax, vitamin D, Singulair, probiotic, amiodarone, Lipitor, Zosyn. SOCIAL HISTORY: Lives with daughter, never smoker. FAMILY HISTORY: Noncontributory. PHYSICAL EXAMINATION: VITAL SIGNS: T-max 102. He is defervesced since. BP 130/55, pulse 74, respirations 20, O2 saturati on 97%. GENERAL: Appears in no distress. SKIN: Remarkable for the Payne catheter, peripheral IV access. No lymphadenopathy. HEENT: Ocular movements conjugate. Oral cavity normal. NECK: Supple. LUNGS: Symmetric clear breath sounds. EART: S1, S2, irregular rate and a soft aortic murmur. ABDOMEN: Soft, not distended or tender. No ascites. No bladder distention. : No genital abnormalities except for Payne catheter. EXTREMITIES: Ankylosis of the left ankle in a valgus position. Pulses are diminished dorsalis pedis . Cap refill less than 3 seconds. He is able to move extremities equally. NEUROLOGIC: Cognitive function appears to be intact. He knows where he was and the . LABORATORY DATA: White cell count 2.5, now is up to 14,000, hemoglobin 9.3, platelets 157, 90% neutr ophils. Chemistry with a creatinine of 1.62 and his baseline is around 0.98 last year around February, g lucose 218. Liver profile normal. Albumin 3.1. Urinalysis with greater than 50 wbc's. Microbiolog y with Klebsiella pneumonia and Streptococcus bacteremia originally from the urine. The same organis m plus third gram negative marjan are present in the urine. ASSESSMENT: 1. Atrial fibrillation, on Eliquis. 2. Chronic Payne catheterization for management of benign prostatic hypertrophy. Problems with obst ruction of Payne catheter, probably associated hematuria and then removal and then difficulty with re placing it, now has been replaced under direct visualization by Dr. Arambula. 3. Bacteremia and urinary tract infection. 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 Patient will continue on current regimen until have final results of the microbiology and then hopefully transition to oral antimicrobials for discharge planning duration of therapy arou nd 2 weeks total. Evidently, the bladder will become colonized with a different pathogen. He is at risk for developing colonization with resistant pathogens in the future and obviously the urinary col onization should not be treated but only when there are systemic consequences of the urinary tract co lonization such as what happened now. Other sites of involvement are not apparent at this time and I do not foresee any major complication, should be able to be discharged once we have the susceptibili ty profile of the gram negative marjan since the Streptococcus should be susceptible to penicillin such as amoxicillin. Evidently if the gram negative rods have resistant profile, then that would complica te management. The patient would require placement of IV access for administration of IV antimicrobi als in the home place.
[2018-03-15 04:47] LABS: Hemoglobin 9.7 g/dL (14.0-18.0); Platelet Count 155 thou/uL (130-400)
[2018-03-15] MEDS: Sodium Chloride 0.9% 1,000 ML IV SCH ×2 (05:23→10:21)
[2018-03-15] MEDS: Piperacillin/Tazobactam 3.375 GM, Admixture Fee 1 EACH in Sodium Chloride 0.9% 100 ML IVPB SCH ×3 (05:23→17:51)
[2018-03-15] MEDS: Apixaban 2.5 MG TAB PO SCH ×2 (07:43→21:26)
[2018-03-15] MEDS: Carvedilol 3.125 MG TAB PO SCH ×2 (07:43→17:51)
[2018-03-15] MEDS: Famotidine 20 MG TAB PO SCH (07:43)
[2018-03-15] MEDS: Aspirin 81 mg Enteric Coated Tablet PO SCH (07:43)
[2018-03-15] MEDS: Ferrous Sulfate 325 MG TAB PO SCH ×2 (07:44→17:51)
--- NOTE | 2018-03-15 18:18 | PDOC.PN ---
- Subjective Encounter Start Date: 03/15/18 Encounter Start Time: 10:00 Pt seen for followup re: sepsis. Denies chest pain, shortness of breath, fevers or chills. No nausea or vomiting. - Objective Resuscitation Status: Resuscitation Status FULL:Full Resuscitation Vital Signs & Weight: Vital Signs (12 hours) Temp Pulse Resp BP Pulse Ox 03/15/18 16:06 97.7 F 70 20 156/82 H 96 03/15/18 11:42 97.4 F L 66 20 136/77 95 03/15/18 08:00 98.5 F 86 20 96 03/15/18 07:43 98.5 F 86 20 139/82 96 Weight Weight 205 lb 4.006 oz I&O: 03/14/18 03/15/18 03/16/18 06:59 06:59 06:59 Intake Total 1300 2468 640 Output Total 3175 6450 Balance -0851 -8093 640 Result Diagrams: 03/15/18 04:12 03/15/18 04:12 Phys Exam - Physical Examination Constitutional: NAD HEENT: moist MMs, sclera anicteric, oral pharynx no lesions, 2+ tonsils Neck: no nodes, no JVD, supple, full ROM Respiratory: no wheezing, no rales, no rhonchi, clear to auscultation bilateral Cardiovascular: RRR, no rub S1, S2 Gastrointestinal: soft, non-tender, no distention, positive bowel sounds Neurological: moves all 4 limbs Psychiatric: normal affect, A&O x 3 Dx/Plan (1) Sepsis Code(s): A41.9 - SEPSIS, UNSPECIFIED ORGANISM Status: Acute Comment: continue IV antibiotics as below (2) Bacteremia Code(s): R78.81 - BACTEREMIA Status: Acute Comment: klebsiella and strep bacteremia, continue IV antibiotics as below (3) UTI (urinary tract infection) Status: Acute Qualifiers: Urinary tract infection type: acute cystitis Hematuria presence: with hematuria Qualified Code(s): N30.01 - Acute cystitis with hematuria Comment: colonization vs infection (4) BPH (benign prostatic hyperplasia) Code(s): N40.0 - BENIGN PROSTATIC HYPERPLASIA WITHOUT LOWER URINRY TRACT SYMP Status: Chronic Qualifiers: Lower urinary tract symptom presence: symptoms present Lower urinary tract symptom detail: urinary retention Qualified Code(s): N40.1 - Benign prostatic hyperplasia with lower urinary tract symptoms; R33.8 - Other retention of urine ; R33.8 - Other retention of urine Comment: stable (5) CAD (coronary artery disease) Code(s): I25.10 - ATHSCL HEART DISEASE OF [place] CORONARY ARTERY W/O ANG PCTRS Status: Chronic Qualifiers: Coronary Disease-Associated Artery/Lesion type: [place] artery [place] vs. transplanted heart: [place] heart Associated angina: without angina Qualified Code(s): I25.10 - Atherosclerotic heart disease of [place] coronary artery without angina pectoris Comment: stable - Plan * . Review of Systems - Review of Systems Constitutional: negative: fever, chills, sweats, weakness, malaise Respiratory: negative: Cough, Shortness of Breath, SOB with Excertion, Pleuritic Pain, Wheezing Cardiovascular: negative: chest pain, palpitations, orthopnea, paroxysmal nocturnal dyspnea, edema, light headedness Gastrointestinal: negative: Nausea, Vomiting, Abdominal Pain, Diarrhea, Constipation, Melena, Hematochezia Genitourinary: negative: Dysuria, Frequency, Incontinence, Hematuria, Retention Skin: negative: Rash, Lesions, Deyvi, Bruising - Medications/Allergies Allergies/Adverse Reactions: Allergies Allergy/AdvReac Type Severity Reaction Status Date / Time No Known Drug Allergies Allergy Verified 11/17/16 01:21 Medications: Current Medications Acetaminophen (Tylenol) 650 mg PO Q6H PRN PRN Reason: Headache/Fever or Pain Last Admin: 03/14/18 11:59 Dose: 650 mg Amiodarone HCl (Cordarone) 200 mg PO [facility] Last Admin: 03/14/18 20:29 Dose: 200 mg Apixaban (Eliquis) 2.5 mg PO BID [facility] Last Admin: 03/15/18 07:43 Dose: 2.5 mg Aspirin (Ecotrin) 81 mg PO DAILY [facility] Last Admin: 03/15/18 07:43 Dose: 81 mg Atorvastatin Calcium (Lipitor) 20 mg PO [facility] Last Admin: 03/14/18 20:29 Dose: 20 mg Carvedilol (Coreg) 3.125 mg PO BID-[facility] Last Admin: 03/15/18 17:51 Dose: 3.125 mg Famotidine (Pepcid) 20 mg PO DAILY [facility] Last Admin: 03/15/18 07:43 Dose: 20 mg Ferrous Sulfate (Feosol) 325 mg PO BID-[facility] Last Admin: 03/15/18 17:51 Dose: 325 mg Sodium Chloride (Normal Saline 0.9%) 1,000 mls @ 75 mls/hr IV .[id number] [facility] Last Admin: 03/15/18 10:21 Dose: 1,000 mls Piperacillin Sod/Tazobactam Sod 3.375 gm/ Miscellaneous Medication 1 each/ Sodium Chloride 100 mls @ 200 mls/hr IVPB 0500,1100,1700,2300 [facility] Last Admin: 03/15/18 17:51 Dose: 100 mls Montelukast Sodium (Singulair) 10 mg PO QPM [facility] Last Admin: 03/14/18 20:29 Dose: 10 mg Pantoprazole Sodium (Protonix) 40 mg PO DAILY [facility] Last Admin: 03/15/18 07:43 Dose: 40 mg Tamsulosin HCl (Flomax) 0.4 mg PO HS [facility] Last Admin: 03/14/18 20:29 Dose: 0.4 mg
[2018-03-15] MEDS: Amiodarone 200 MG TAB PO SCH (21:18)
[2018-03-15] MEDS: Tamsulosin HCl 0.4 MG CAP PO SCH (21:18)
[2018-03-15] MEDS: Montelukast Sodium 10 mg Tablet PO SCH (21:18)
[2018-03-15] MEDS: Atorvastatin Calcium 20 MG TAB PO SCH (21:18)
[2018-03-16] MEDS: Piperacillin/Tazobactam 3.375 GM, Admixture Fee 1 EACH in Sodium Chloride 0.9% 100 ML IVPB SCH ×4 (00:10→18:52)
[2018-03-16] MEDS: Sodium Chloride 0.9% 1,000 ML IV SCH ×2 (00:10→16:41)
[2018-03-16] MEDS: Famotidine 20 MG TAB PO SCH (08:43)
[2018-03-16] MEDS: Carvedilol 3.125 MG TAB PO SCH ×2 (08:44→18:19)
[2018-03-16] MEDS: Aspirin 81 mg Enteric Coated Tablet PO SCH (08:44)
[2018-03-16] MEDS: Ferrous Sulfate 325 MG TAB PO SCH ×2 (08:45→18:19)
[2018-03-16] MEDS: Apixaban 2.5 MG TAB PO SCH ×2 (08:45→21:31)
--- NOTE | 2018-03-16 16:14 | PDOC.PN ---
- Subjective Encounter Start Date: 03/16/18 Encounter Start Time: 12:20 Pt seen for followup re: bacteremia. Denies chest pain, shortness of breath, fevers or chills. No nausea or vomiting. - Objective Resuscitation Status: Resuscitation Status FULL:Full Resuscitation Vital Signs & Weight: Vital Signs (12 hours) Temp Pulse Resp BP Pulse Ox 03/16/18 11:43 97.5 F L 68 16 121/73 97 03/16/18 08:44 98.2 F 81 20 137/75 98 03/16/18 08:00 97.5 F L 68 16 98 03/16/18 05:59 98.2 F 68 18 152/85 H 97 Weight Weight 205 lb 4.006 oz I&O: 03/15/18 03/16/18 03/17/18 06:59 06:59 06:59 Intake Total 2468 1768 Output Total 6450 2675 Balance -3982 -907 Result Diagrams: 03/15/18 04:12 03/15/18 04:12 Additional Labs: Accuchecks 03/16/18 11:15 POC Glucose 175 H Phys Exam - Physical Examination Constitutional: NAD HEENT: moist MMs Neck: supple Respiratory: no rhonchi Cardiovascular: RRR Gastrointestinal: soft Neurological: moves all 4 limbs Psychiatric: normal affect Dx/Plan (1) Bacteremia Code(s): R78.81 - BACTEREMIA Status: Acute Comment: klebsiella and strep bacteremia, continue antibiotics as below. Further antibiotics per ID service recommendations. (2) UTI (urinary tract infection) Status: Acute Qualifiers: Urinary tract infection type: acute cystitis Hematuria presence: with hematuria Qualified Code(s): N30.01 - Acute cystitis with hematuria Comment: colonization vs infection, pt is on antibiotics as below (3) BPH (benign prostatic hyperplasia) Code(s): N40.0 - BENIGN PROSTATIC HYPERPLASIA WITHOUT LOWER URINRY TRACT SYMP Status: Chronic Qualifiers: Lower urinary tract symptom presence: symptoms present Lower urinary tract symptom detail: urinary retention Qualified Code(s): N40.1 - Benign prostatic hyperplasia with lower urinary tract symptoms; R33.8 - Other retention of urine ; R33.8 - Other retention of urine Comment: stable (4) CAD (coronary artery disease) Code(s): I25.10 - ATHSCL HEART DISEASE OF [place] CORONARY ARTERY W/O ANG PCTRS Status: Chronic Qualifiers: Coronary Disease-Associated Artery/Lesion type: [place] artery [place] vs. transplanted heart: hughes heart Associated angina: without angina Qualified Code(s): I25.10 - Atherosclerotic heart disease of [place] coronary artery without angina pectoris Comment: stable (5) Sepsis Code(s): A41.9 - SEPSIS, UNSPECIFIED ORGANISM Status: Resolved - Plan * . Review of Systems - Review of Systems Respiratory: negative: Cough, Shortness of Breath, SOB with Excertion, Pleuritic Pain, Wheezing Cardiovascular: negative: chest pain, palpitations, orthopnea, paroxysmal nocturnal dyspnea, edema, light headedness - Medications/Allergies Allergies/Adverse Reactions: Allergies Allergy/AdvReac Type Severity Reaction Status Date / Time No Known Drug Allergies Allergy Verified 11/17/16 01:21 Medications: Current Medications Acetaminophen (Tylenol) 650 mg PO Q6H PRN PRN Reason: Headache/Fever or Pain Last Admin: 03/14/18 11:59 Dose: 650 mg Amiodarone HCl (Cordarone) 200 mg PO [facility] Last Admin: 03/15/18 21:18 Dose: 200 mg Amiodarone HCl (Cordarone) 200 mg PO HS [facility] Apixaban (Eliquis) 2.5 mg PO BID [facility] Last Admin: 03/16/18 08:45 Dose: 2.5 mg Apixaban (Eliquis) 5 mg PO BID [facility] Ascorbic Acid (Vitamin C) 500 mg PO BID [facility] Aspirin (Ecotrin) 81 mg PO DAILY [facility] Last Admin: 03/16/18 08:44 Dose: 81 mg Aspirin (Ecotrin) 81 mg PO DAILY [facility] Atorvastatin Calcium (Lipitor) 20 mg PO [facility] Last Admin: 03/15/18 21:18 Dose: 20 mg Atorvastatin Calcium (Lipitor) 20 mg PO HS [facility] Carvedilol (Coreg) 3.125 mg PO BID[facility] Last Admin: 03/16/18 08:44 Dose: 3.125 mg Carvedilol (Coreg) 3.125 mg PO BID [facility] Cyanocobalamin (Vitamin B-12) 1,000 mcg PO DAILY [facility] Famotidine (Pepcid) 20 mg PO DAILY [facility] Last Admin: 03/16/18 08:43 Dose: 20 mg Famotidine (Pepcid) 20 mg PO BID [facility] Ferrous Sulfate (Feosol) 325 mg PO BID[facility] Last Admin: 03/16/18 08:45 Dose: 325 mg Ferrous Sulfate (Feosol) 325 mg PO BID[facility] Folic Acid (Folvite) 1 mg PO HS [facility] Sodium Chloride (Normal Saline 0.9%) 1,000 mls @ 75 mls/hr IV .[id number] [facility] Last Admin: 03/16/18 00:10 Dose: 1,000 mls Piperacillin Sod/Tazobactam Sod 3.375 gm/ Miscellaneous Medication 1 each/ Sodium Chloride 100 mls @ 200 mls/hr IVPB 0500,1100,1700,2300 [facility] Last Admin: 03/16/18 12:19 Dose: 100 mls Magnesium Chloride (Slow-Mag) 64 mg PO BID [facility] Metformin HCl (Glucophage) 500 mg PO BID[facility] Montelukast Sodium (Singulair) 10 mg PO QPM [facility] Last Admin: 03/15/18 21:18 Dose: 10 mg Montelukast Sodium (Singulair) 10 mg PO HS [facility] Non-Formulary Medication (Lactobacillus Acidophilus [Probiotic]) 1 capsule PO HS [facility] Non-Formulary Medication (Multivitamin [Multiple Vitamins]) 1 tab PO HS [facility] Pantoprazole Sodium (Protonix) 40 mg PO DAILY [facility] Last Admin: 03/16/18 08:44 Dose: 40 mg Pantoprazole Sodium (Protonix) 40 mg PO DAILY [facility] Tamsulosin HCl (Flomax) 0.4 mg PO HS [facility] Last Admin: 03/15/18 21:18 Dose: 0.4 mg Tamsulosin HCl (Flomax) 0.4 mg PO [facility]
[2018-03-16] MEDS ORDERED: Ferrous Sulfate 325 MG TAB PO SCH (17:00)
[2018-03-16] MEDS: metFORMIN 500 MG TAB PO SCH (18:19)
[2018-03-16] MEDS ORDERED: Atorvastatin Calcium 20 MG TAB PO SCH (21:00)
[2018-03-16] MEDS ORDERED: Montelukast Sodium 10 mg Tablet PO SCH (21:00)
[2018-03-16] MEDS ORDERED: Tamsulosin HCl 0.4 MG CAP PO SCH (21:00)
[2018-03-16] MEDS ORDERED: Amiodarone 200 MG TAB PO SCH (21:00)
[2018-03-16] MEDS ORDERED: Non-Formulary Item 1 EACH (Lactobacillus Acidophilus [Probiotic] 1 CAPSULE) PO SCH (21:00)
[2018-03-16] MEDS ORDERED: Carvedilol 3.125 MG TAB PO SCH (21:00)
[2018-03-16] MEDS ORDERED: Apixaban 5 MG TAB PO SCH (21:00)
[2018-03-16] MEDS ORDERED: Famotidine 20 MG TAB PO SCH (21:00)
[2018-03-16] MEDS ORDERED: Folic Acid 1 MG TAB PO SCH (21:00)
[2018-03-16] MEDS: Tamsulosin HCl 0.4 MG CAP PO SCH (21:31)
[2018-03-16] MEDS: Atorvastatin Calcium 20 MG TAB PO SCH (21:31)
[2018-03-16] MEDS: Ascorbic Acid 500 mg Chewable Tablet PO SCH (21:31)
[2018-03-16] MEDS: Amiodarone 200 MG TAB PO SCH (21:31)
[2018-03-16] MEDS: Montelukast Sodium 10 mg Tablet PO SCH (21:32)
[2018-03-16] MEDS: Magnesium Chloride 64 MG TAB PO SCH (21:32)
--- NOTE | 2018-03-16 22:01 | PRG ---
DATE OF SERVICE: 03/16/2018 SUBJECTIVE: Mr. Perkins is sitting up, trying to have a bowel movement. He feels well. No respirat ory symptoms. No abdominal pain. No diarrhea. No genitourinary symptoms outside the ones reported. His temperature has normalized. PHYSICAL EXAMINATION: VITAL SIGNS: Normal. GENERAL: Awake, alert, oriented. LUNGS: Clear. HEART: S1, S2, regular rate. No S3, S4. ABDOMEN: Soft, not distended. GENITOURINARY: The patient has an indwelling Payne catheter as noted before. LABORATORY DATA: The white cell count is at 14.3, hemoglobin 9.5, platelets 157. Creatinine is at 1 .30, which is down from admission. Microbiology with Streptococcus pasteurianus and Klebsiella pneum oniae. Klebsiella pneumo is susceptible to quinolones. ASSESSMENT AND DISCUSSION: Atrial fibrillation on Eliquis and chronic Payne catheterization problems with obstruction and then an accidental removal, and then replacement under direct visualization by Dr. Arambula. Bacteremia and urinary tract infection. We would advise for discharge planning, transi tion to oral quinolone such as ciprofloxacin plus oral amoxicillin orally for 2 weeks.
[2018-03-17] MEDS: Piperacillin/Tazobactam 3.375 GM, Admixture Fee 1 EACH in Sodium Chloride 0.9% 100 ML IVPB SCH ×2 (01:01→05:59)
[2018-03-17 05:29] LABS: Hemoglobin 10.4 g/dL (14.0-18.0); Platelet Count 183 thou/uL (130-400)
[2018-03-17] MEDS: Sodium Chloride 0.9% 1,000 ML IV SCH (05:59)
[2018-03-17] MEDS ORDERED: Ciprofloxacin 500 MG TAB PO SCH ×2 (08:00→20:00)
[2018-03-17] MEDS: Carvedilol 3.125 MG TAB PO SCH ×2 (08:36→16:48)
[2018-03-17] MEDS: Ferrous Sulfate 325 MG TAB PO SCH ×2 (08:36→16:48)
[2018-03-17] MEDS: metFORMIN 500 MG TAB PO SCH ×2 (08:36→16:48)
[2018-03-17] MEDS: Apixaban 2.5 MG TAB PO SCH (08:37)
[2018-03-17] MEDS: Magnesium Chloride 64 MG TAB PO SCH (08:37)
[2018-03-17] MEDS: Aspirin 81 mg Enteric Coated Tablet PO SCH (08:37)
[2018-03-17] MEDS: Ascorbic Acid 500 mg Chewable Tablet PO SCH (08:37)
[2018-03-17] MEDS ORDERED: Multivitamin W/ Minerals 1 TAB PO SCH (09:00)
[2018-03-17] MEDS ORDERED: Cyanocobalamin (Vitamin B-12) 1,000 MCG TAB PO SCH (09:00)
[2018-03-17] MEDS ORDERED: AMOXicillin 250 MG CAP PO SCH (09:00)
[2018-03-17] MEDS ORDERED: Aspirin 81 mg Enteric Coated Tablet PO SCH (09:00)
[2018-03-17 11:34] VITALS: TEMP 98
[2018-03-17 16:51] VITALS: BP 140/74
--- NOTE | 2018-03-17 23:08 | DIS ---
DATE OF ADMISSION: 03/12/2018 DATE OF DISCHARGE: 03/17/2018 PRIMARY CARE PROVIDER: Juan Jin DO DISCHARGE DIAGNOSES: 1. Sepsis. 2. Bacteremia. 3. Urinary tract infection. 4. Catheters obstruction with urinary retention. 5. Hematuria secondary to trauma. CONSULTATIONS DURING THIS HOSPITALIZATION: Pulmonary Critical Care Medicine, Dr. Oliveira; Urology, Ladi Arambula; and Infectious Diseases, Dr. Donaldson. DISCHARGE MEDICATIONS: Ciprofloxacin 500 mg 2 times a day for 2 weeks, amoxicillin 500 mg 2 times a day for 2 weeks, amiodarone 200 mg at bedtime, apixaban 5 mg 2 times a day, vitamin C 500 mg 2 times a day, aspirin 81 mg daily, Lipitor 20 mg at bedtime, Coreg 3.125 mg 2 times a day, vitamin B12 1000 mcg daily, Pepcid 20 mg 2 times a day, ferrous sulfate 325 mg 2 times a day, folic acid 1 mg at bedti me, probiotic 1 capsule at bedtime, Slow-Mag 64 mg 2 times a day, Glucophage 500 mg 2 times a day, Si ngulair 10 mg at bedtime, multivitamins 1 tablet at bedtime, Protonix 40 mg daily, tamsulosin 0.4 mg at bedtime. HOSPITAL COURSE: Mr. Perkins is a pleasant 82-year-old gentleman who was admitted to [facility] on 03/12/2018 for sepsis and urinary tract infection. He also had urinary retenti on, with a false passage causing bleeding and inability to replace the catheter. The catheter was re placed by Urology Service. He was started on antibiotics. Blood cultures grew Klebsiella pneumonia and Streptococcus pasteurianus. Streptococcus pasteurianus was resistant to clindamycin, erythromycin, and levofloxacin, but sensitive to ampicillin, cefotaxime , ceftriaxone, penicillin, tetracycline, and vancomycin. Klebsiella pneumonia was pansensitive. He was seen by Infectious Disease Service. It was felt that urine cultures which were growing gram nega tive rods were likely colonization. Urine cultures were also growing alpha hemolytic streptococcus. However, he did need treatment for Klebsiella pneumonia and Streptococcus pasteurianus. He is being discharged on ciprofloxacin and ampicillin. A 2D echocardiogram showed left ventricular ejection fraction of 50-55% and E/A flow reversal suggest yany of diastolic dysfunction. Many thanks for allowing me to participate in Mr. Perkins's care. Please feel free to contact me wit h any questions or concerns. On the day of discharge, he has hemoglobin 10.4, hematocrit 31.5, creatinine 1.23, and estimated GFR of 56. DISCHARGE DESTINATION: Home. TOTAL AMOUNT OF TIME SPENT COORDINATING THIS DISCHARGE: 33 minutes.
== END 2018-03-17 19:04 | disposition home or self-care (01) | DRG 698 ==
LOC: ERS 12:43 → IMCU/EMU 17:48 → T4-B 03-13 10:57
PROVIDERS: ADMIT Family Medicine; ATTEND Family Medicine
PROC: 0T9B80Z Drainage of Bladder with Drainage Device, Via Natural or Artificial Opening Endoscopic (ICD-10-PCS; principal; 2018-03-12)
DX: T83.511A Infection and inflammatory reaction due to indwelling urethral catheter, initial encounter (principal); A41.89 Other specified sepsis; N30.01 Acute cystitis with hematuria; I50.22 Chronic systolic (congestive) heart failure; N40.1 Benign prostatic hyperplasia with lower urinary tract symptoms; R33.8 Other retention of urine; N36.5 Urethral false passage; N32.89 Other specified disorders of bladder; D50.9 Iron deficiency anemia, unspecified; I35.0 Nonrheumatic aortic (valve) stenosis; I25.10 Atherosclerotic heart disease of native coronary artery without angina pectoris; N18.3 Chronic kidney disease, stage 3 (moderate); I48.2 Chronic atrial fibrillation; E11.22 Type 2 diabetes mellitus with diabetic chronic kidney disease; D63.1 Anemia in chronic kidney disease; B95.4 Other streptococcus as the cause of diseases classified elsewhere; B96.1 Klebsiella pneumoniae [K. pneumoniae] as the cause of diseases classified elsewhere; Z16.29 Resistance to other single specified antibiotic; K21.9 Gastro-esophageal reflux disease without esophagitis; E78.5 Hyperlipidemia, unspecified; Y73.1 Therapeutic (nonsurgical) and rehabilitative gastroenterology and urology devices associated with adverse incidents; Z79.01 Long term (current) use of anticoagulants; Z79.84 Long term (current) use of oral hypoglycemic drugs; Z79.82 Long term (current) use of aspirin; Z95.5 Presence of coronary angioplasty implant and graft
CPT/HCPCS: 36415; 36416; 51703; 71045; 76770; 80053; 81003; 81015; 82565; 83605; 84484; 85014; 85018; 85025; 85049; 87040; 87077; 87086; 87149; 87186; 93005; 93306; 96361; 96365; 96367; G8978-GP-CM; G8979-GP-CL; J0696; J2543; J7050

== ENCOUNTER 2019-11-09 01:05 | Observation (INO) | payer MEDICARE ==
[2019-11-09 01:35] LABS: #Basophils 0.1 thou/uL (0.0-0.2); #Eosinphils 0.4 thou/uL (0.0-0.7); #Lymphocytes 1.6 thou/uL (1.20-3.40); #Monocytes 0.6 thou/uL (0.11-0.59); #Neutrophils 3.4 thou/uL (1.40-6.50); %Basophils 1.1 % (0.0-1.0); %Eosinophils 6.3 % (0.0-10.0); %Lymphocytes 26.1 % (21.0-51.0); %Monocytes 10.1 % (0.0-10.0); %Neutrophils 56.4 % (42.0-75.0); Hemoglobin 9.7 g/dL (14.0-18.0); Mean Corpuscular Hemoglobin 27.7 pg (27.0-31.0); Mean Corpuscular Volume 86.4 fL (78.0-98.0); Mean Platelet Volume 9.2 fL (7.4-10.4); Platelet Count 290 thou/uL (130-400); RBC Distribution Width 18.4 % (11.5-14.5)
[2019-11-09 01:55] LABS: Bacteria/HPF 2+ HPF (None Seen); Bilirubin Negative (Negative); Blood, Urine 2+ (Negative); Clarity Turbid (Clear); Glucose, Urine (Dipstick) Normal (Negative); Leukocyte 500 Leu/uL (Negative); Nitrite Negative (Negative); Protein, Urine (Dipstick) 30 mg/dL (Neg-Trace); RBC/HPF Greater than 50 HPF (0-3); Squamous Epithelial 0-3 HPF (0-3); Urobilinogen Normal mg/dL (Less than 2); WBC/HPF Greater than 50 HPF (0-3)
[2019-11-09 01:56] LABS: ALT (SGPT) 58 U/L (8-55); AST (SGOT) 67 U/L (5-34); Albumin 4.3 g/dL (3.4-4.8); Alkaline Phosphatase 83 U/L (40-110); Anion Gap 14 mmol/L (10-20); BUN (Urea Nitrogen) 37 mg/dL (8.4-25.7); Bilirubin, Total 0.4 mg/dL (0.2-1.2); Calc. Creatinine Clearance 0 mL/min (70-130); Calcium 9.3 mg/dL (7.8-10.44); Carbon Dioxide 16 mmol/L (23-31); Chloride 111 mmol/L (98-107); Estimated GFR-MDRD 25; Globulin 3.9 g/dL (2.4-3.5); Glucose 144 mg/dL (83-110); Potassium 6.1 mmol/L (3.5-5.1); Protein, Total 8.2 g/dL (5.8-8.1); Sodium 135 mmol/L (136-145)
[2019-11-09] MEDS ORDERED: cefTRIAXone\\ROCEPHIN 1 GM VIAL ONE (02:08)
[2019-11-09] MEDS ORDERED: cefTRIAXone\\ROCEPHIN 2 GM VIAL ONE (02:08)
[2019-11-09 05:11] VITALS: BMI 29.6
--- NOTE | 2019-11-09 09:02 | RAD ---
CHEST 1 VIEW PORTABLE: HISTORY: Chest pain. COMPARISON: 03/12/2018. FINDINGS: A 0.9 cm diameter nodular density projected over the left 6th anterior rib and 10th posterior rib, po tentially a pulmonary nodule. This is not definitely seen on the prior study. A followup CT scan is suggested on a nonemergent basis. Potential nodule in the left lower lobe of the lung. CODE T
[2019-11-09 11:26] LABS: Anion Gap 11 mmol/L (10-20); BUN (Urea Nitrogen) 38 mg/dL (8.4-25.7); Calc. Creatinine Clearance 27 mL/min (70-130); Calcium 8.7 mg/dL (7.8-10.44); Carbon Dioxide 16 mmol/L (23-31); Chloride 115 mmol/L (98-107); Estimated GFR-MDRD 26; Glucose 142 mg/dL (83-110); Sodium 137 mmol/L (136-145)
[2019-11-09] MEDS ORDERED: Dextrose 5% in Water 1,000 ML IV PRN (16:27)
[2019-11-09] MEDS ORDERED: HumaLOG 300 UNITS/3 ML VIAL SC PRN (16:27)
[2019-11-09] MEDS ORDERED: Dextrose 50% Abboject 50 ML SYRINGE SLOW IVP PRN (16:27)
[2019-11-09] MEDS: Ferrous Sulfate 325 MG TAB PO SCH (17:25)
[2019-11-09] MEDS ORDERED: Sodium Chloride 0.9% 1,000 ML IV SCH (20:00)
[2019-11-09] MEDS ORDERED: Prevnar 13-Val Conj/PF 0.5 ML SYRINGE IM ONE (21:00)
[2019-11-09] MEDS: Magnesium Chloride 64 MG TAB PO SCH (21:33)
[2019-11-09] MEDS: Carvedilol 3.125 MG TAB PO SCH (21:34)
[2019-11-09] MEDS: Montelukast Sodium 10 mg Tablet PO SCH (21:34)
[2019-11-09] MEDS: Apixaban 2.5 MG TAB PO SCH (21:34)
[2019-11-09] MEDS: Amiodarone 200 MG TAB PO SCH (21:34)
[2019-11-09] MEDS: Tamsulosin HCl 0.4 MG CAP PO SCH (21:34)
[2019-11-09] MEDS: Atorvastatin Calcium 20 MG TAB PO SCH (21:34)
[2019-11-09] MEDS: Lactinex Tablet PO SCH (21:34)
[2019-11-09] MEDS: Folic Acid 1 MG TAB PO SCH (21:34)
[2019-11-09] MEDS: Ascorbic Acid 500 mg Chewable Tablet PO SCH (21:35)
[2019-11-09] MEDS: Famotidine 20 MG TAB PO SCH (21:35)
--- NOTE | 2019-11-09 22:22 | HP ---
PRESENTING COMPLAINT: Dizziness, neck pain, numbness, tingling in his hand. HISTORY OF PRESENT ILLNESS: The patient was a poor historian with past medical history of coronary artery disease with a history of stent placement, congestive heart failure, atrial fibrillation, diabetes mellitus, aortic stenosis, nephrolithiasis, chronic kidney disease stage 3, chronic anemia, benign prostatic hypertrophy with indwelling Payne catheter, gastroesophageal reflux disease, chronic left shoulder pain, presbycusis, walks with a cane and walker as per patient, dyslipidemia, presented with dizziness and tingling sensations down to feet and neck pain. The patient otherwise denies any chest pain, shortness of breath. Denies any temperature. Denies any headache. Complains of mild nausea, but as per patient, he was able to eat today. Denies vomiting, diarrhea, constipation. Has indwelling Payne catheter. Denies any fever, swelling. The patient being admitted for further evaluation. Also found to have hyperkalemia on admission, status post Kayexalate given repeat potassium 5.0 and also has worsening creatinine function from the baseline 1.22. As per nursing staff, looks like Payne not been draining properly. REVIEW OF SYSTEMS: As mentioned above in the HPI. All other systems are negative. PAST MEDICAL HISTORY: As mentioned above in the HPI. PAST SURGICAL HISTORY: History of nephrolithiasis, history of tonsillectomy, history of cardioversion for atrial fibrillation. ALLERGIES: NKDA. HOME MEDICATIONS: 1. Montelukast. 2. Atorvastatin. 3. Carvedilol. 4. Cyanocobalamin. 5. Famotidine. 6. Ferrous sulfate. 7. Magnesium chloride. 8. Pantoprazole. 9. Lactobacillus. 10. Tamsulosin. 11. Amiodarone. 12. Aspirin. 13. Ascorbic acid. 14. Metformin. 15. Multivitamin. 16. Folic acid. 17. Eliquis. FAMILY HISTORY: For diabetes mellitus. PHYSICAL EXAMINATION: VITAL SIGNS: Blood pressure 106/76, temperature 97.5, pulse 64, respiration 18, oxygen saturation 100%. GENERAL: The patient lying in bed comfortably, in no distress. HEENT: Conjunctivae normal. Oral mucosa moist. NECK: Supple. No JVD. No lymphadenopathy. CHEST: Normal vesicular breathing. No rhonchi. No wheezing. HEART: Sounds normal. No murmur, gallop, no rub. ABDOMEN: Soft, indwelling Payne catheter. SKIN: Bruise in the left leg and left chest area. EXTREMITIES: Mild edema of feet positive. Power almost 5/5 bilateral upper and lower extremities. LABORATORY DATA: CMP unremarkable except potassium on admission 6.1, repeat potassium 5.1, creatinine 2.49, baseline creatinine 1.22. ALT and AST 67 and 58, albumin 4.3, CPK 129, lactic acid 1.7. CBC unremarkable except hemoglobin 9.7. UA; leukocyte esterase 500, RBCs 50, white blood cells 50. Troponin negative. Chest x-ray, 0.9 cm diameter nodular density projected over the left 6th rib and 10th posterior rib, potentially a pulmonary nodule. This is not definitely seen on the prior study. A followup CT scan is suggested on a nonemergent basis. IMPRESSION: 1. Dizziness with numbness, tingling in hands and neck pain. We will rule out transient ischemic attack versus stroke. We will get an MRI brain and also we will get MRI cervical spine as the patient had been complaining of neck pain, and has numbness, tingling of hands. We will continue antiplatelet therapy. Watch for symptoms. The patient currently is able to mobilize and move all his limbs. We will get PT evaluation. The patient currently tolerating diet. Denies any swallowing difficulty or swallowing speech problem. If MRI is positive, we will get Neurology evaluation. 2. Acute kidney injury with chronic kidney disease, stage 3. The patient has chronic indwelling Payne catheter and not been draining well as per nursing staff. We will get Nephrology and Urology evaluation. 3. Hyperkalemia present on admission, status post Kayexalate therapy. Repeat potassium is normal. We will continue to monitor kidney functions. 4. Functional decline. We will get PT evaluation. 5. Diabetes mellitus. Continue monitoring blood sugar. Continue sliding scale insulin. 6. Chronic anemia, currently stable. Denies any active bleeding. 7. History of atrial fibrillation. Continue amiodarone. Continue oral anticoagulation. 8. History of chronic congestive heart failure, currently looks compensated. 9. History of benign prostatic hypertrophy with indwelling Payne catheter. The patient doubt acute urinary tract infection. The patient has normal white blood cells. Denies any fever. We will hold antibiotics at present. 10. Gastroesophageal reflux disease. Continue PPI. 11. Dyslipidemia. Continue statins. 12. History of coronary artery disease, status post stenting. Currently, denies any chest pain. 13. Cognitive impairment, possible dementia. Continue supportive care. Follow up Neurology outpatient. 14. A 0.9 cm left lung nodule. Follow up CT chest outpatient. 15. Deep venous thrombosis and gastrointestinal prophylaxis. Plan discussed with the nursing staff in detail. Job ID: [id number]
--- NOTE | 2019-11-09 22:47 | CON ---
DATE OF CONSULTATION: 11/09/2019 REASON FOR CONSULT: No urine output. CHIEF COMPLAINT: Weakness, dizziness. HISTORY OF PRESENT ILLNESS: This is an 84-year-old male, who was admitted with weakness and hand tingling. He has a long-standing history of urinary retention managed with a Payne catheter and has had a suprapubic tube in the past, but apparently this was very uncomfortable and so, this was changed back to a urethral catheter. He seems to have recurrent urinary tract infections, although I have a difficult time getting a clear history from the patient given his baseline dementia. The notes indicate that he was recently diagnosed with UTI and has been on antibiotics, I do not know who his urologist is. Overnight, his Payne catheter bag was changed from a leg bag to a bedside bag and ever since, he did not have any urine output. I was contacted this afternoon about 2 o'clock about this issue and advised that this be irrigated and exchanged if no urine was returned. His nurse performed these procedures, however, was unable to place the Payne catheter into his bladder when she attempted to exchange, at which point, she wisely contacted me. In speaking with the patient, on presentation to his bedside, he does not provide any helpful information for me. He does not report that he feels that his bladder is full and is not having any discomfort. PAST MEDICAL HISTORY: Has been reviewed from his chart indicating gastroesophageal reflux, BPH, urinary retention, anemia, chronic kidney disease, angina, atrial fibrillation, diabetes, hyperlipidemia, kidney stones, and aortic valve stenosis. PAST SURGICAL HISTORY: Reviewed from his chart indicating kidney stone surgery. He certainly has had a suprapubic tube placed previously given the scar in his abdomen. SOCIAL HISTORY: The patient lives with his daughter. No substance abuse. REVIEW OF SYSTEMS: Ten-point review of systems is negative except as mentioned above, although it is difficult to get clear answers from the patient. ALLERGIES: NO KNOWN DRUG ALLERGIES. PHYSICAL EXAMINATION: VITAL SIGNS: Afebrile. Vitals, stable. GENERAL: No acute distress, resting comfortably in bed. HEENT: Head; normocephalic and atraumatic. NECK: Supple. Trachea midline. RESPIRATORY: Breathing unlabored. Symmetric chest expansion. HEART: Regular rate. ABDOMEN: Soft, nontender. : Uncircumcised phallus, bladder nondistended. No blood at meatus. SKIN: Warm and dry. NEUROLOGIC: Alert, oriented to person only. PSYCHIATRIC: Normal mood. EXTREMITIES: Without clubbing, cyanosis, or edema. LABORATORY DATA: White count 6, creatinine 2.42. Urinalysis; 500 leukocytes, negative nitrite. Urine culture pending. DESCRIPTION OF PROCEDURE: Under sterile conditions, I attempted to pass first a 20-[place] Payne catheter, but was unable to guide this through his prostate, noting obstruction at this point and a small amount of bleeding resulting from my attempt. I then tried an 18 coude catheter and was also similarly unsuccessful. I then prepared the cystoscope and again under sterile conditions, passed the cystoscope through the urethra noting a false passage in the bulbar urethra and then guided into the prostate, noting a very large prostate with a 5 to 6 cm channel. The scope was then passed into his bladder, noting moderate trabeculation with no mucosal abnormalities. An Amplatz wire was passed through the scope into the bladder. The scope was then withdrawn and a 20-[place] Councill tip catheter passed over the wire into the bladder with return of clear urine. This connected to bag drainage. 10 mL was instilled in the balloon and was connected to his leg with a StatLock device. He tolerated the procedure well. Blood loss from initial catheter attempts about 10 mL. ASSESSMENT AND PLAN: Urinary retention, BPH, Payne trauma. I think the most likely cause for his catheter not draining is that it likely was pulled out by the patient or during positioning. This has now been replaced and will need to stay in for another month before being exchanged as usual. I see no reason for him to be on tamsulosin as he has an indwelling catheter. He should be on broad-spectrum antibiotics, which I do not see listed in his chart, however, he likely got antibiotics in the emergency room. I will continue to follow along during his hospital course. Job ID: [id number]
--- NOTE | 2019-11-10 02:07 | CON ---
DATE OF CONSULTATION: 11/09/2019 CONSULTING PHYSICIAN: REASON FOR CONSULT: Acute kidney injury. REASON FOR ADMISSION: Weakness. HISTORY OF PRESENT ILLNESS: An 84-year-old male with history of GERD, BPH, iron deficiency, atrial fibrillation, type 2 diabetes, heart failure, came to the hospital with above complaints. The patient was also found to have elevated creatinine and Nephrology was consulted. Creatinine was 2.4, baseline seems to be around 1.2 to 1.8. The patient denies any complaints. He is feeling better. No nausea or vomiting. No chest pain, palpitation. PAST MEDICAL HISTORY: Positive for GERD, BPH, iron deficiency anemia, CKD, atrial fibrillation, type 2 diabetes, hyperlipidemia, CHF. PAST SURGICAL HISTORY: Removal of kidney stones. HOME MEDICATIONS: Reviewed. ALLERGIES: NO KNOWN DRUG ALLERGIES. SOCIAL HISTORY: No smoking, alcohol, or illicit drug abuse. FAMILY HISTORY: No history of kidney disease. REVIEW OF SYSTEMS: The following complete review of systems was negative, unless otherwise mentioned in the HPI or below: Constitutional: Weight loss or gain, ability to conduct usual activities. Skin: Rash, itching. Eyes: Double vision, pain. ENT/Mouth: Nose bleeding, neck stiffness, pain, tenderness. Cardiovascular: Palpitations, dyspnea on exertion, orthopnea. Respiratory: Shortness of breath, wheezing, cough, hemoptysis, fever or night sweats. Gastrointestinal: Poor appetite, abdominal pain, heartburn, nausea, vomiting, constipation, or diarrhea. Genitourinary: Urgency, frequency, dysuria, nocturia. Musculoskeletal: Pain, swelling. Neurologic/Psychiatric: Anxiety, depression. Allergy/Immunologic: Skin rash, bleeding tendency. PHYSICAL EXAMINATION: GENERAL: This is a well-built male, no apparent distress. VITAL SIGNS: Temperature 97.6, pulse 71, respiratory rate 16, and blood pressure 110/59. HEENT: Atraumatic and normocephalic. Oral mucosa is moist. NECK: Supple. CV: S1, S2. Regular rate and rhythm. RESPIRATORY: Clear. GASTROINTESTINAL: Abdomen is soft. MUSCULOSKELETAL: 1+ edema. DERMATOLOGIC: No skin rash. NEUROLOGIC: Alert and awake. PSYCHIATRIC: Mood and affect normal. LABORATORY DATA: Potassium 6.1, BUN is 37, and creatinine is 2.4. ASSESSMENT/PLAN: 1. Acute kidney injury, most likely from volume depletion. Agree with hydration. We will check renal ultrasound. 2. Hyperkalemia, better. 3. Acidosis. 4. Hyponatremia. 5. Hypochloremia. 6. Hypoalbuminemia. 7. Anemia of chronic disease. 8. Urinary tract infection. Follow up cultures and check renal ultrasound to rule out any obstruction. 9. Avoid nephrotoxins. Recommend IV fluids as tolerated, and we will check renal ultrasound. Urology being consulted. Job ID: [id number] MTDD
[2019-11-10 06:01] LABS: Anion Gap 11 mmol/L (10-20); BUN (Urea Nitrogen) 28 mg/dL (8.4-25.7); Calc. Creatinine Clearance 35 mL/min (70-130); Calcium 8.2 mg/dL (7.8-10.44); Carbon Dioxide 18 mmol/L (23-31); Cardiac Risk 4.3 (Less than 4.5); Chloride 112 mmol/L (98-107); Cholesterol 163 mg/dl (< 200 Desired); Estimated GFR-MDRD 34; Glucose 129 mg/dL (83-110); HDL Cholesterol 38 mg/dL (>60 Neg Risk); LDL Cholesterol, Calculated 89 mg/dL; Potassium 4.4 mmol/L (3.5-5.1); Sodium 137 mmol/L (136-145); Triglycerides 181 mg/dL (Less than 150)
--- NOTE | 2019-11-10 08:28 | ULT ---
US Renal Bilateral STANDARD HISTORY: Acute renal insufficiency COMPARISON: 03/12/2018 FINDINGS: The right kidney measures 10.8 cm in length and the left kidney measures 12.2 cm in length. No hydron ephrosis seen on either side. Bilateral cysts are present measuring 4.4 cm on the right and 2.2 cm in the left. There is a 1.6 cm calcification in the inferior pole of the right kidney There is a Payne catheter within the urinary bladder. IMPRESSION: 1. Bilateral renal cysts 2. Nonobstructing right renal calculus.
[2019-11-10] MEDS: Cyanocobalamin (Vitamin B-12) 1,000 MCG TAB PO SCH (09:33)
[2019-11-10] MEDS: Apixaban 2.5 MG TAB PO SCH ×2 (09:33→21:23)
[2019-11-10] MEDS: Ferrous Sulfate 325 MG TAB PO SCH ×2 (09:33→16:48)
[2019-11-10] MEDS: Multivit, Therapeutic 1 TAB PO SCH (09:34)
[2019-11-10] MEDS: Carvedilol 3.125 MG TAB PO SCH ×2 (09:34→21:23)
[2019-11-10] MEDS: Famotidine 20 MG TAB PO SCH (09:34)
[2019-11-10] MEDS: Ascorbic Acid 500 mg Chewable Tablet PO SCH ×2 (09:34→21:22)
[2019-11-10] MEDS: Aspirin 81 mg Enteric Coated Tablet PO SCH (09:34)
--- NOTE | 2019-11-10 10:05 | PDOC.HOSPP ---
- Subjective Encounter Date: 11/10/19 Encounter Time: 10:04 Subjective: pain like sharp process on motion of neck - Objective Vital Signs & Weight: Vital Signs (12 hours) Temp Pulse Resp BP Pulse Ox 11/10/19 08:13 97.7 F 74 20 131/62 100 11/10/19 04:00 98.5 F 73 16 110/59 L 98 11/09/19 23:17 97.4 F L 69 16 109/55 L 99 Weight Weight 191 lb I&O: 11/09/19 11/10/19 11/11/19 06:59 06:59 07:59 Intake Total 2500 Output Total 2525 350 Balance -25 -350 Result Diagrams: 11/09/19 01:21 11/10/19 05:23 Additional Labs: Accuchecks 11/09/19 11/09/19 11/09/19 21:12 17:34 11:15 POC Glucose 176 H 126 H 167 H Radiology Reviewed by me: Yes (mri c spine , multiple level abnormalities) Hospitalist ROS - Medication Medications: Active Medications Generic Name Dose Route Start Last Admin Trade Name Freq PRN Reason Stop Dose Admin Acidophilus 1 tab 11/09/19 21:00 11/09/19 21:34 Floranex PO 1 tab HS SONA Administration Amiodarone HCl 200 mg 11/09/19 21:00 11/09/19 21:34 Cordarone PO 200 mg HS SONA Administration Apixaban 2.5 mg 11/09/19 21:00 11/10/19 09:33 Eliquis PO 2.5 mg BID SONA Administration Ascorbic Acid 500 mg 11/09/19 21:00 11/10/19 09:34 Vitamin C PO 500 mg BID SONA Administration Aspirin 81 mg 11/10/19 09:00 11/10/19 09:34 Ecotrin PO 81 mg DAILY SONA Administration Atorvastatin Calcium 20 mg 11/09/19 21:00 11/09/19 21:34 Lipitor PO 20 mg HS SONA Administration Carvedilol 3.125 mg 11/09/19 21:00 11/10/19 09:34 Coreg PO 3.125 mg BID SONA Administration Cyanocobalamin 1,000 mcg 11/10/19 09:00 11/10/19 09:33 Vitamin B-12 PO 1,000 mcg DAILY SONA Administration Famotidine 20 mg 11/09/19 21:00 11/10/19 09:34 Pepcid PO 20 mg BID SONA Administration Ferrous Sulfate 325 mg 11/09/19 17:00 11/10/19 09:33 Feosol PO 325 mg BID-WM SONA Administration Folic Acid 1 mg 11/09/19 21:00 11/09/19 21:34 Folvite PO 1 mg HS SONA Administration Sodium Chloride 1,000 mls @ 50 mls/hr 11/09/19 20:00 11/09/19 21:49 Normal Saline 0.9% IV 1,000 mls .Q20H SONA Administration Magnesium Chloride 64 mg 11/09/19 21:00 11/09/19 21:33 Slow-Mag PO 64 mg BID SONA Administration Montelukast Sodium 10 mg 11/09/19 21:00 11/09/19 21:34 Singulair PO 10 mg HS SONA Administration Multivitamins 1 tab 11/10/19 09:00 11/10/19 09:34 Theragran PO 1 tab DAILY SONA Administration Pantoprazole Sodium 40 mg 11/10/19 09:00 11/10/19 09:34 Protonix PO 40 mg DAILY SONA Administration Tamsulosin HCl 0.4 mg 11/09/19 21:00 11/09/19 21:34 Flomax PO 0.4 mg HS SONA Administration - Exam General Appearance: awake alert Neck: no JVD Heart: RRR, no murmur Respiratory: CTAB, normal chest expansion Gastrointestinal: soft, normal bowel sounds Extremities: no edema Neurological - other findings: only weakness is in shoulder muscles Hosp A/P (1) Cervical radiculopathy at C7 Code(s): M54.12 - RADICULOPATHY, CERVICAL REGION Status: Acute (2) Urinary retention with incomplete bladder emptying Code(s): R33.9 - RETENTION OF URINE, UNSPECIFIED Status: Acute (3) Atrial fibrillation Code(s): I48.91 - UNSPECIFIED ATRIAL FIBRILLATION Status: Chronic Qualifiers: Atrial fibrillation type: chronic (4) CAD (coronary artery disease) Code(s): I25.10 - ATHSCL HEART DISEASE OF [place] CORONARY ARTERY W/O ANG PCTRS Status: Chronic Qualifiers: Coronary Disease-Associated Artery/Lesion type: [place] artery [place] vs. transplanted heart: [place] heart Associated angina: without angina Qualified Code(s): I25.10 - Atherosclerotic heart disease of [place] coronary artery without angina pectoris (5) CKD (chronic kidney disease) stage 3, GFR 30-59 ml/min Code(s): N18.3 - CHRONIC KIDNEY DISEASE, STAGE 3 (MODERATE) Status: Chronic (6) DM2 (diabetes mellitus, type 2) Status: Chronic Qualifiers: Diabetes mellitus terminal system operator insulin use: without fdc use Diabetes mellitus complication status: with kidney complications Diabetes mellitus complication detail: with chronic kidney disease Chronic kidney disease stage : stage 3 (moderate) Qualified Code(s): E11.22 - Type 2 diabetes mellitus with diabetic chronic kidney disease; N18.3 - Chronic kidney disease, stage 3 ( moderate) - Plan consult NS cont shaw add broad spetrum antibx
--- NOTE | 2019-11-10 10:32 | MRI ---
MRI BRAIN WITHOUT CONTRAST: HISTORY: TIA CORRELATION: CT scan from 12/15/2016. FINDINGS: No restricted diffusion is seen. There are multiple foci of T2 prolongation in the periventricular wh ite matter, consistent with chronic small vessel ischemic disease. The ventricular size is appropriate and the basilar cisterns are patent. No evidence of acute infarct, acute hemorrhage, midline shift or abnormal extra-axial fluid collectio ns is seen. There is a small focus of hemosiderin deposition likely due to remote hemorrhage in the right thalamus. There is mucosal disease in the paranasal sinuses. IMPRESSION: No evidence of acute intracranial process.
--- NOTE | 2019-11-10 11:45 | MRI ---
EXAM: MRI Cervical Spine WO Con PROVIDED CLINICAL HISTORY: Bilateral hand numbness with generalized weakness COMPARISON: None FINDINGS: There is minimal anterolisthesis of C7 on T1. Cervical alignment appears otherwise normal. The visual ized posterior fossa and cervical spinal cord demonstrate normal signal and morphology. There is degenerative pannus formation present at the posterior aspect of the odontoid, narrowing the cervical medullary junction without evidence for contact or deformity. At C2-3, there is bilateral facet arthritis without significant central canal stenosis. There is mild right foraminal narrowing. At C3-4, there is a broad-based disc osteophyte complex and bilateral uncinate process hypertrophy. T here is bilateral facet arthritis. There is moderate-severe bilateral foraminal narrowing. There is effacement of the ventral subarachnoid space without cord contact or deformity. At C4-5, there is no significant central canal or foraminal narrowing apparent. At C5-6, there is a broad-based disc osteophyte complex, bilateral facet arthritis and bilateral unci marshal process hypertrophy. There is severe bilateral foraminal narrowing. There is effacement of ventral subarachnoid space, with approximation of the ventral spinal cord. No definite cord deformity . At C6-7, there is a broad-based disc osteophyte complex and bilateral uncinate process hypertrophy. T here is severe bilateral foraminal narrowing. There is effacement of the ventral subarachnoid space without cord contact or deformity. At C7-T1, there is a broad-based disc bulge with moderate bilateral foraminal narrowing. Bilateral fa cet arthritis. No significant central canal stenosis apparent. IMPRESSION: Cervical degenerative changes producing canal and foraminal narrowing as described.
--- NOTE | 2019-11-10 12:23 | EKG ---
Test Reason : Blood Pressure : / mmHG Vent. Rate : 048 BPM Atrial Rate : 048 BPM P-R Int : 176 ms QRS Dur : 112 ms QT Int : 486 ms P-R-T Axes : 000 019 054 degrees QTc Int : 434 ms Marked sinus bradycardia Abnormal ECG Confirmed by COLIN AL ([id number]), editor dictionary CRISTIANO PARKER ([id number]) on 11/10/2019 12:22:56 PM Referred By: Confirmed By:COLIN AL
[2019-11-10] MEDS: Magnesium Chloride 64 MG TAB PO SCH ×2 (12:31→21:23)
--- NOTE | 2019-11-10 13:12 | PRG ---
DATE OF SERVICE: 11/10/2019 SUBJECTIVE: The patient has remained confused overnight. He is not able to answer my questions clearly this morning, but has not had any acute events. OBJECTIVE: VITAL SIGNS: Afebrile, vitals stable. Good urine output, which has cleared overnight. GENERAL: No acute distress. LUNGS: Nonlabored breathing. HEART: Regular rate and rhythm. ABDOMEN: Soft. Payne catheter in good position draining clear urine. SKIN: Warm and dry. EXTREMITIES: Without clubbing, cyanosis, or edema. Hemoglobin 9.7, creatinine down to 1.91. ASSESSMENT AND PLAN: Hospital day two. Urology consulted for urinary retention. Payne catheter draining well. No hematuria at this point. He can follow up with his usual urologist in 3 to 4 weeks for catheter exchange. Job ID: [id number]
[2019-11-10] MEDS ORDERED: cefTRIAXone\\ROCEPHIN 1 GM in Sodium Chloride 0.9% 100 ML IVPB SCH (14:00)
[2019-11-10] MEDS: Sodium Bicarbonate 75 MEQ in Sodium Chloride 0.45% 1,000 ML IV SCH (14:54)
--- NOTE | 2019-11-10 20:14 | PRG ---
DATE OF SERVICE: 11/10/2019 Mr. Perkins is an 84-year-old man who presented for generalized weakness. Neurosurgery was consulted for MRI of the cervical spine after the patient reported neck pain and some tingling in the hands, that reveals widely patent central cervical spinal canal other than at C5 and C7 only has perhaps mild to moderate central canal stenosis. He does have significant bilateral neuroforaminal narrowing at C5-6 and C6-7. This could certainly contribute to some tingling in the fingers and hands and even down the arms. However, none of this appears to be profound and patient has documented full range of motion and strength in bilateral upper extremities. Recommendations for treatment on this patient's neck would be outpatient followup and clinic workup, would recommend pain management workup before any surgical intervention. There is certainly no urgent need for surgery in his case. The tingling reported on his back and into his legs, I do not see any reason for on this scan on the brain MRI and for that reason, would again recommend outpatient workup solely. We will defer to primary team for disposition and plan and our clinic will arrange followup at that point. Job ID: [id number]
[2019-11-10] MEDS ORDERED: Famotidine 20 MG TAB PO SCH (21:00)
[2019-11-10] MEDS: Atorvastatin Calcium 20 MG TAB PO SCH (21:22)
[2019-11-10] MEDS: Lactinex Tablet PO SCH (21:22)
[2019-11-10] MEDS: Montelukast Sodium 10 mg Tablet PO SCH (21:22)
[2019-11-10] MEDS: Tamsulosin HCl 0.4 MG CAP PO SCH (21:22)
[2019-11-10] MEDS: Folic Acid 1 MG TAB PO SCH (21:23)
[2019-11-10] MEDS: Amiodarone 200 MG TAB PO SCH (21:23)
[2019-11-11] MEDS: Sodium Bicarbonate 75 MEQ in Sodium Chloride 0.45% 1,000 ML IV SCH (05:33)
[2019-11-11] MEDS ORDERED: Famotidine 20 MG TAB PO SCH (09:00)
[2019-11-11] MEDS: Ferrous Sulfate 325 MG TAB PO SCH (09:20)
[2019-11-11] MEDS: Apixaban 2.5 MG TAB PO SCH (09:21)
[2019-11-11] MEDS: Cyanocobalamin (Vitamin B-12) 1,000 MCG TAB PO SCH (09:21)
[2019-11-11] MEDS: Ascorbic Acid 500 mg Chewable Tablet PO SCH (09:21)
[2019-11-11] MEDS: Aspirin 81 mg Enteric Coated Tablet PO SCH (09:21)
[2019-11-11] MEDS: Carvedilol 3.125 MG TAB PO SCH (09:21)
[2019-11-11] MEDS: Multivit, Therapeutic 1 TAB PO SCH (09:21)
[2019-11-11] MEDS: Magnesium Chloride 64 MG TAB PO SCH (09:22)
[2019-11-11 12:37] VITALS: BP 128/61; TEMP 98.4
--- NOTE | 2019-11-11 14:28 | PRG ---
DATE OF SERVICE: 11/11/2019 SUBJECTIVE: Patient was seen and examined at bedside and overnight events noted. Patient denies any shortness of breath or chest pain or palpitation. No history of nausea or vomiting or diarrhea or fever or chills or cramps. OBJECTIVE: GENERAL: This is a well-built male, in no apparent distress. VITAL SIGNS: Temperature 98.4. Heart rate 68. Respiratory rate 20. Blood pressure 128/61. HEENT: Atraumatic, normocephalic. Oral mucosa is moist NECK: Supple. CARDIOVASCULAR: S1, S2 heard. Rate and rhythm regular. RESPIRATORY: Clear to auscultation. GASTROINTESTINAL: Abdomen is soft. MUSCULOSKELETAL: No tenderness. No edema. DERMATOLOGIC: No skin rash. NEUROLOGIC: Alert and awake and oriented X3. No focal neurologic deficits. Moving all the extremities. PSYCHIATRIC: Mood and affect normal. LABORATORY DATA: Not done today. ASSESSMENT AND PLAN: 1. Acute kidney injury. Monitor labs. 2. Acidosis and hyperkalemia. 3. Hypochloremia. 4. Hypoalbuminemia. 5. Urinary tract infection. Labs are better. Job ID: [id number]
--- NOTE | 2019-11-11 21:46 | DIS ---
DATE OF ADMISSION: 11/09/2019 DATE OF DISCHARGE: 11/11/2019 PRIMARY CARE PHYSICIAN: Juan Jin DO DISPOSITION: Discharged home. FINAL DIAGNOSES: Urinary tract infection with Proteus, retention of urine with indwelling Payne catheter, cervical radiculopathy, atrial fibrillation, hypertension, diabetes mellitus type 2 with chronic kidney disease. DISCHARGE MEDICATIONS: 1. Cefdinir 300 mg p.o. q.12 hours x10 days. 2. Flomax 0.4 mg a day. 3. Metformin 500 mg p.o. b.i.d. 4. Protonix 40 mg a day. 5. Pepcid 20 mg twice a day. 6. Aspirin 81 mg a day. 7. Lipitor 20 mg a day. 8. Coreg 3.125 mg a day. 9. Amiodarone 200 mg a day. 10. Eliquis 2.5 mg twice a day. ALLERGIES: NO KNOWN DRUG ALLERGIES. CODE STATUS: Full. PENDING AT TIME OF DISCHARGE: Nothing. DIET: Diabetic. HOSPITAL COURSE AND CONSULTATIONS: Nephrology Dr. Nakia Miranda, Neurosurgery Jaylan Hopson for Dr. Jasper Arriaza, Dr. Xavi Rodriguez, Urology. The patient admitted to the Hospitalist Service through [facility] with weakness, pain in his neck, numbness, tingling in his hands. He had a renal ultrasound done, which revealed nonobstructing renal calculi. He had a brain MRI done and a C-spine MRI brain. Brain MRI revealed no acute intracranial process. Cervical spine MRI revealed some nonsignificant spinal stenosis and some significant neuroforaminal narrowing. His urine culture revealed Proteus mirabilis pansensitive except for nitrofurantoin. Initial laboratory revealed a sodium of 135, followup 137, potassium 6.1, followup 5.0, creatinine 2.49, followup 2.42. These are consistent with old numbers. White cell count was 6.0, hemoglobin 9.7, platelet count 290,000. The patient is currently comfortable. He is comfortable with discharge. He is aware that he has some problems in his neck that will be addressed in the future. The patient is being discharged in stable status to see his primary care doctor in 3 days. The patient is unaware of the name of his urologist, however, Dr. Rodriguez has suggested follow up with his urologist in 3 or 4 weeks. Robin Hopson has recommended outpatient followup with Neurosurgery, which can be arranged per the primary care doctor. Job ID: [id number]
--- NOTE | 2019-11-12 07:25 | PRG ---
DATE OF SERVICE: 11/10/2019 SUBJECTIVE: Patient was seen and examined at bedside and overnight events noted. Patient denies any shortness of breath or chest pain or palpitation. No history of nausea or vomiting or diarrhea or fever or chills or cramps. OBJECTIVE: GENERAL: This is a well-built male, in no apparent distress. VITAL SIGNS: Temperature 98. Heart rate 66. Respiratory rate 16. Blood pressure 127/58. HEENT: Atraumatic, normocephalic. Oral mucosa is moist NECK: Supple. CARDIOVASCULAR: S1, S2 heard. Rate and rhythm regular. RESPIRATORY: Clear to auscultation. GASTROINTESTINAL: Abdomen is soft. MUSCULOSKELETAL: No tenderness. No edema. DERMATOLOGIC: No skin rash. NEUROLOGIC: Alert and awake and oriented X3. No focal neurologic deficits. Moving all the extremities. PSYCHIATRIC: Mood and affect normal. LABORATORY DATA: Potassium 4.4, BUN is 28, creatinine is 1.9. Renal ultrasound, bilateral renal cysts, nonobstructing right renal calculus. ASSESSMENT AND PLAN: 1. Acute kidney injury, getting better. 2. Hyperkalemia. 3. Acidosis. We will add bicarb. 4. Hypochloremia. 5. Hypoalbuminemia. 6. Anemia of chronic disease. 7. Change fluids to bicarb containing fluid and we will follow. Job ID: [id number]
== END 2019-11-11 13:20 | disposition home health service (06) ==
LOC: ERS 01:05 → 2SW 02:42
PROVIDERS: ADMIT Internal Medicine Sleep Medicine; ATTEND Internal Medicine
DX: N39.0 Urinary tract infection, site not specified (principal); M54.16 Radiculopathy, lumbar region; I48.91 Unspecified atrial fibrillation; I13.0 Hypertensive heart and chronic kidney disease with heart failure and stage 1 through stage 4 chronic kidney disease, or unspecified chronic kidney disease; E11.22 Type 2 diabetes mellitus with diabetic chronic kidney disease; N17.9 Acute kidney failure, unspecified; N18.3 Chronic kidney disease, stage 3 (moderate); D63.1 Anemia in chronic kidney disease; I50.9 Heart failure, unspecified; E87.2 Acidosis; E87.5 Hyperkalemia; E87.8 Other disorders of electrolyte and fluid balance, not elsewhere classified; E88.09 Other disorders of plasma-protein metabolism, not elsewhere classified; R42 Dizziness and giddiness; R20.0 Anesthesia of skin; Z23 Encounter for immunization; K21.9 Gastro-esophageal reflux disease without esophagitis; R91.1 Solitary pulmonary nodule; Z79.01 Long term (current) use of anticoagulants; Z79.82 Long term (current) use of aspirin; Z79.84 Long term (current) use of oral hypoglycemic drugs; Z79.899 Other long term (current) drug therapy
CPT/HCPCS: 70551; 71045; 72141; 76770; 80048 ×2; 80053; 80061; 82550; 82962 ×3; 83605; 83880; 84484; 85025; 87077; 87086; 87186; 90670; 93005; 96361 ×3; 96365; 96366 ×2; 96367; 99285; G0009; G0378 ×4; 36415; 36416; 81003; 81015; 90471; J0696; J3490

== ENCOUNTER 2021-07-15 04:30 | Inpatient (IN) | payer MEDICARE ==
[2021-07-15] MEDS ORDERED: Aspirin Chewable 81 MG TAB ONE (05:08)
[2021-07-15 05:32] LABS: #Eosinphils 0.6 thou/uL (0.0-0.7); #Lymphocytes 1.8 thou/uL (1.20-3.40); #Monocytes 0.5 thou/uL (0.11-0.59); #Neutrophils 2.6 thou/uL (1.40-6.50); %Basophils 0.7 % (0.0-1.0); %Eosinophils 10.3 % (0.0-10.0); %Lymphocytes 32.4 % (21.0-51.0); %Monocytes 8.9 % (0.0-10.0); %Neutrophils 47.6 % (42.0-75.0); Hemoglobin 11.2 g/dL (14.0-18.0); Mean Corpuscular HGB CONC 33.1 g/dL (32.0-36.0); Mean Corpuscular Volume 87.6 fL (78.0-98.0); Mean Platelet Volume 8.5 fL (7.4-10.4); Platelet Count 210 thou/uL (130-400); RBC Distribution Width 14.1 % (11.5-14.5); Red Blood Cell (RBC) Count 3.85 mill/uL (4.70-6.10); White Blood Cell (WBC) Count 5.4 thou/uL (4.8-10.8)
[2021-07-15 05:35] LABS: Bilirubin Small (Negative); Clarity Hazy (Clear); Glucose, Urine (Dipstick) Negative (Negative)
[2021-07-15 05:36] LABS: Blood, Urine Large (Negative); Ketone, Urine Negative (Negative)
[2021-07-15 05:37] LABS: Protein, Urine (Dipstick) 100 mg/dL (Neg-Trace)
[2021-07-15 05:38] LABS: Leukocyte Large (Negative); Urobilinogen 0.2 mg/dL (Less than 2)
[2021-07-15 05:40] LABS: Nitrite Negative (Negative); RBC/HPF Greater than 50 HPF (0-3)
[2021-07-15 05:41] LABS: Other Microscopic Description Less than 2 mL rec'd
[2021-07-15] MEDS ORDERED: Nitroglycerin 2% Ointment 1 INCH/1 GM Packet ONE (05:46)
[2021-07-15 05:48] LABS: ALT (SGPT) 31 U/L (8-55); AST (SGOT) 36 U/L (5-34); Albumin 3.7 g/dL (3.4-4.8); Alkaline Phosphatase 83 U/L (40-110); Anion Gap 14 mmol/L (10-20); BUN (Urea Nitrogen) 24 mg/dL (8.4-25.7); Bilirubin, Total 0.4 mg/dL (0.2-1.2); Calc. Creatinine Clearance 0 mL/min (70-130); Calcium 8.7 mg/dL (7.8-10.44); Carbon Dioxide 21 mmol/L (23-31); Chloride 105 mmol/L (98-107); Globulin 3.7 g/dL (2.4-3.5); Glucose 129 mg/dL (83-110); Lipase 70 U/L (8-78); Protein, Total 7.4 g/dL (5.8-8.1); Sodium 136 mmol/L (136-145)
[2021-07-15 06:18] LABS: Bilirubin Negative (Negative); Blood, Urine 3+ (Negative); Clarity Turbid (Clear); Glucose, Urine (Dipstick) Normal (Negative); Ketone, Urine Negative (Negative); Leukocyte 500 Leu/uL (Negative); Nitrite Negative (Negative); Protein, Urine (Dipstick) 20 mg/dL (Neg-Trace); Specific Gravity, Urine 1.004 (1.002-1.036); Squamous Epithelial None Seen HPF (0-3); Urobilinogen Normal mg/dL (Less than 2); WBC/HPF Greater than 50 HPF (0-3)
[2021-07-15 06:29] LABS: Bacteria/HPF 1+ HPF (None Seen)
[2021-07-15] MEDS ORDERED: cefTRIAXone\\ROCEPHIN 1 GM VIAL ONE (06:47)
[2021-07-15] MEDS ORDERED: HumaLOG 300 UNITS/3 ML VIAL SC PRN (08:04)
[2021-07-15] MEDS ORDERED: Acetaminophen 325 MG TAB PO PRN (08:04)
[2021-07-15] MEDS ORDERED: Ondansetron ODT 4 MG TAB PO PRN (08:04)
[2021-07-15] MEDS ORDERED: Dextrose 50% Abboject 50 ML SYRINGE SLOW IVP PRN (08:04)
[2021-07-15] MEDS ORDERED: Dextrose 5% in Water 1,000 ML IV PRN (08:04)
[2021-07-15 08:42] LABS: Troponin I 0.019 ng/mL (< 0.028)
[2021-07-15 08:44] LABS: Magnesium 1.8 mg/dL (1.6-2.6)
[2021-07-15] MEDS ORDERED: Apixaban 2.5 MG TAB PO SCH (09:00)
[2021-07-15] MEDS ORDERED: Aspirin 81 mg Enteric Coated Tablet PO SCH (09:00)
[2021-07-15] MEDS ORDERED: Magnesium Sulfate 2 GM in Sodium Chloride 0.9% 100 ML IVPB SCH (11:00)
[2021-07-15] MEDS ORDERED: Magnesium 2 GM/50 ML 2 GM in Premix Bag 1 BAG IVPB SCH (11:00)
[2021-07-15 11:57] LABS: Troponin I 0.012 ng/mL (< 0.028)
[2021-07-15] MEDS ORDERED: Sodium Chloride 0.9% 1,000 ML IV SCH (12:00)
[2021-07-15] MEDS ORDERED: FLU VACC QS2021-22(65YR UP)/PF 240 MCG/0.7 ML SYRINGE IM ONE (16:00)
[2021-07-15] MEDS: Ferrous Sulfate 325 MG TAB PO SCH (16:39)
[2021-07-15] MEDS: Carvedilol 3.125 MG TAB PO SCH (16:39)
[2021-07-15] MEDS ORDERED: Carvedilol 3.125 MG TAB PO SCH (17:00)
[2021-07-15 17:29] LABS: SARS-CoV-2 PCR by NAA Not Detected (NotDetected)
[2021-07-15] MEDS: Apixaban 2.5 MG TAB PO SCH (19:55)
[2021-07-15] MEDS: Atorvastatin Calcium 20 MG TAB PO SCH (19:55)
[2021-07-15] MEDS: Tamsulosin HCl 0.4 MG CAP PO SCH (19:55)
[2021-07-15] MEDS: Folic Acid 1 MG TAB PO SCH (19:56)
[2021-07-15] MEDS: Amiodarone 200 MG TAB PO SCH (19:56)
[2021-07-16 05:30] LABS: #Eosinphils 0.4 thou/uL (0.0-0.7); #Lymphocytes 1.2 thou/uL (1.20-3.40); #Monocytes 0.5 thou/uL (0.11-0.59); #Neutrophils 2.7 thou/uL (1.40-6.50); %Basophils 0.7 % (0.0-1.0); %Eosinophils 7.7 % (0.0-10.0); %Lymphocytes 25.3 % (21.0-51.0); %Monocytes 10.7 % (0.0-10.0); %Neutrophils 55.7 % (42.0-75.0); Hemoglobin 10.8 g/dL (14.0-18.0); Mean Corpuscular HGB CONC 31.8 g/dL (32.0-36.0); Mean Corpuscular Hemoglobin 27.9 pg (27.0-31.0); Mean Corpuscular Volume 87.6 fL (78.0-98.0); Mean Platelet Volume 8.5 fL (7.4-10.4); Platelet Count 214 thou/uL (130-400); RBC Distribution Width 14.2 % (11.5-14.5); Red Blood Cell (RBC) Count 3.87 mill/uL (4.70-6.10); White Blood Cell (WBC) Count 4.9 thou/uL (4.8-10.8)
[2021-07-16 05:50] LABS: ALT (SGPT) 29 U/L (8-55); AST (SGOT) 32 U/L (5-34); Albumin 3.4 g/dL (3.4-4.8); Alkaline Phosphatase 73 U/L (40-110); Anion Gap 12 mmol/L (10-20); BUN (Urea Nitrogen) 23 mg/dL (8.4-25.7); Bilirubin, Total 0.4 mg/dL (0.2-1.2); Calc. Creatinine Clearance 40 mL/min (70-130); Calcium 8.8 mg/dL (7.8-10.44); Carbon Dioxide 24 mmol/L (23-31); Chloride 107 mmol/L (98-107); Globulin 3.8 g/dL (2.4-3.5); Glucose 134 mg/dL (83-110); Potassium 4.4 mmol/L (3.5-5.1); Protein, Total 7.2 g/dL (5.8-8.1); Sodium 139 mmol/L (136-145)
[2021-07-16] MEDS: Carvedilol 3.125 MG TAB PO SCH ×2 (09:37→19:10)
[2021-07-16] MEDS: cefTRIAXone\\ROCEPHIN 1 GM in Sodium Chloride 0.9% 100 ML IVPB SCH ×2 (09:37→09:58)
[2021-07-16] MEDS: Ferrous Sulfate 325 MG TAB PO SCH ×2 (09:37→19:10)
[2021-07-16] MEDS: Aspirin 81 mg Enteric Coated Tablet PO SCH (09:37)
[2021-07-16] MEDS: Cyanocobalamin (Vitamin B-12) 1,000 MCG TAB PO SCH (09:37)
[2021-07-16] MEDS: Apixaban 2.5 MG TAB PO SCH ×2 (09:58→21:19)
[2021-07-16] MEDS: HumaLOG 300 UNITS/3 ML VIAL SC PRN (11:51)
[2021-07-16] MEDS: Amiodarone 200 MG TAB PO SCH (21:20)
[2021-07-16] MEDS: Folic Acid 1 MG TAB PO SCH (21:20)
[2021-07-16] MEDS: Tamsulosin HCl 0.4 MG CAP PO SCH (21:20)
[2021-07-16] MEDS: Atorvastatin Calcium 20 MG TAB PO SCH (21:20)
[2021-07-17 05:27] LABS: #Eosinphils 0.4 thou/uL (0.0-0.7); #Lymphocytes 1.6 thou/uL (1.20-3.40); #Monocytes 0.8 thou/uL (0.11-0.59); #Neutrophils 3.2 thou/uL (1.40-6.50); %Basophils 0.2 % (0.0-1.0); %Eosinophils 7.2 % (0.0-10.0); %Lymphocytes 27.1 % (21.0-51.0); %Monocytes 12.3 % (0.0-10.0); %Neutrophils 53.2 % (42.0-75.0); Mean Corpuscular HGB CONC 32.6 g/dL (32.0-36.0); Mean Corpuscular Hemoglobin 28.7 pg (27.0-31.0); Mean Platelet Volume 9.2 fL (7.4-10.4); Platelet Count 193 thou/uL (130-400); RBC Distribution Width 14.3 % (11.5-14.5); Red Blood Cell (RBC) Count 3.82 mill/uL (4.70-6.10); White Blood Cell (WBC) Count 6.1 thou/uL (4.8-10.8)
[2021-07-17 05:46] LABS: ALT (SGPT) 28 U/L (8-55); AST (SGOT) 33 U/L (5-34); Albumin 3.3 g/dL (3.4-4.8); Alkaline Phosphatase 72 U/L (40-110); Anion Gap 10 mmol/L (10-20); BUN (Urea Nitrogen) 25 mg/dL (8.4-25.7); Bilirubin, Total 0.4 mg/dL (0.2-1.2); Calc. Creatinine Clearance 38 mL/min (70-130); Carbon Dioxide 25 mmol/L (23-31); Chloride 105 mmol/L (98-107); Globulin 3.8 g/dL (2.4-3.5); Glucose 123 mg/dL (83-110); Potassium 4.4 mmol/L (3.5-5.1); Protein, Total 7.1 g/dL (5.8-8.1); Sodium 136 mmol/L (136-145)
[2021-07-17] MEDS: Aspirin 81 mg Enteric Coated Tablet PO SCH (08:59)
[2021-07-17] MEDS: Ferrous Sulfate 325 MG TAB PO SCH ×2 (08:59→16:18)
[2021-07-17] MEDS: Cyanocobalamin (Vitamin B-12) 1,000 MCG TAB PO SCH (08:59)
[2021-07-17] MEDS: Carvedilol 3.125 MG TAB PO SCH ×2 (08:59→16:19)
[2021-07-17] MEDS: Apixaban 2.5 MG TAB PO SCH ×2 (09:07→20:25)
[2021-07-17] MEDS: Ergocalciferol 1.25 MG(50,000 UNITS) CAP PO SCH (09:07)
[2021-07-17 18:30] VITALS: BMI 33.3
[2021-07-17] MEDS: Folic Acid 1 MG TAB PO SCH (20:25)
[2021-07-17] MEDS: Tamsulosin HCl 0.4 MG CAP PO SCH (20:25)
[2021-07-17] MEDS: Amiodarone 200 MG TAB PO SCH (20:25)
[2021-07-17] MEDS: Atorvastatin Calcium 20 MG TAB PO SCH (20:25)
[2021-07-17] MEDS: Cefdinir 300 MG CAP PO SCH (20:25)
[2021-07-18 05:44] LABS: #Eosinphils 0.5 thou/uL (0.0-0.7); #Lymphocytes 1.8 thou/uL (1.20-3.40); #Monocytes 0.7 thou/uL (0.11-0.59); #Neutrophils 2.9 thou/uL (1.40-6.50); %Basophils 0.8 % (0.0-1.0); %Eosinophils 9.2 % (0.0-10.0); %Lymphocytes 30.5 % (21.0-51.0); %Monocytes 11.1 % (0.0-10.0); %Neutrophils 48.4 % (42.0-75.0); Mean Corpuscular HGB CONC 32.5 g/dL (32.0-36.0); Mean Corpuscular Hemoglobin 28.8 pg (27.0-31.0); Mean Corpuscular Volume 88.7 fL (78.0-98.0); Mean Platelet Volume 8.5 fL (7.4-10.4); Platelet Count 200 thou/uL (130-400); RBC Distribution Width 14.3 % (11.5-14.5); Red Blood Cell (RBC) Count 3.82 mill/uL (4.70-6.10); White Blood Cell (WBC) Count 5.9 thou/uL (4.8-10.8)
[2021-07-18 06:07] LABS: Anion Gap 13 mmol/L (10-20); BUN (Urea Nitrogen) 30 mg/dL (8.4-25.7); Calc. Creatinine Clearance 40 mL/min (70-130); Calcium 9.2 mg/dL (7.8-10.44); Carbon Dioxide 25 mmol/L (23-31); Chloride 103 mmol/L (98-107); Glucose 116 mg/dL (83-110); Potassium 4.5 mmol/L (3.5-5.1); Sodium 136 mmol/L (136-145)
[2021-07-18] MEDS: Ferrous Sulfate 325 MG TAB PO SCH ×2 (09:13→16:07)
[2021-07-18] MEDS: Cyanocobalamin (Vitamin B-12) 1,000 MCG TAB PO SCH (09:13)
[2021-07-18] MEDS: Apixaban 2.5 MG TAB PO SCH ×2 (09:13→21:07)
[2021-07-18] MEDS: Cefdinir 300 MG CAP PO SCH ×2 (09:13→21:08)
[2021-07-18] MEDS: Carvedilol 3.125 MG TAB PO SCH ×2 (09:13→16:07)
[2021-07-18] MEDS: Aspirin 81 mg Enteric Coated Tablet PO SCH (09:13)
[2021-07-18] MEDS: HumaLOG 300 UNITS/3 ML VIAL SC PRN (12:42)
[2021-07-18] MEDS: Atorvastatin Calcium 20 MG TAB PO SCH (21:07)
[2021-07-18] MEDS: Amiodarone 200 MG TAB PO SCH (21:07)
[2021-07-18] MEDS: Tamsulosin HCl 0.4 MG CAP PO SCH (21:08)
[2021-07-18] MEDS: Folic Acid 1 MG TAB PO SCH (21:08)
[2021-07-19 05:29] LABS: #Basophils 0.1 thou/uL (0.0-0.2); #Eosinphils 0.6 thou/uL (0.0-0.7); #Lymphocytes 1.7 thou/uL (1.20-3.40); #Monocytes 0.6 thou/uL (0.11-0.59); #Neutrophils 2.8 thou/uL (1.40-6.50); %Basophils 0.9 % (0.0-1.0); %Eosinophils 9.7 % (0.0-10.0); %Lymphocytes 29.9 % (21.0-51.0); %Monocytes 10.6 % (0.0-10.0); %Neutrophils 48.9 % (42.0-75.0); Hemoglobin 11.5 g/dL (14.0-18.0); Mean Corpuscular HGB CONC 32.5 g/dL (32.0-36.0); Mean Corpuscular Hemoglobin 28.5 pg (27.0-31.0); Mean Corpuscular Volume 87.7 fL (78.0-98.0); Mean Platelet Volume 8.5 fL (7.4-10.4); Platelet Count 192 thou/uL (130-400); RBC Distribution Width 14.1 % (11.5-14.5); Red Blood Cell (RBC) Count 4.02 mill/uL (4.70-6.10); White Blood Cell (WBC) Count 5.7 thou/uL (4.8-10.8)
[2021-07-19 05:51] LABS: Anion Gap 14 mmol/L (10-20); BUN (Urea Nitrogen) 37 mg/dL (8.4-25.7); Calc. Creatinine Clearance 37 mL/min (70-130); Calcium 9.1 mg/dL (7.8-10.44); Carbon Dioxide 23 mmol/L (23-31); Chloride 101 mmol/L (98-107); Glucose 108 mg/dL (83-110); Potassium 4.4 mmol/L (3.5-5.1); Sodium 134 mmol/L (136-145)
[2021-07-19] MEDS: Ferrous Sulfate 325 MG TAB PO SCH ×2 (08:19→16:38)
[2021-07-19] MEDS: Cyanocobalamin (Vitamin B-12) 1,000 MCG TAB PO SCH (08:19)
[2021-07-19] MEDS: Cefdinir 300 MG CAP PO SCH ×2 (08:19→21:40)
[2021-07-19] MEDS: Apixaban 2.5 MG TAB PO SCH ×2 (08:19→21:40)
[2021-07-19] MEDS: Aspirin 81 mg Enteric Coated Tablet PO SCH (08:19)
[2021-07-19] MEDS: Carvedilol 3.125 MG TAB PO SCH ×2 (08:20→16:38)
[2021-07-19] MEDS: HumaLOG 300 UNITS/3 ML VIAL SC PRN (16:36)
[2021-07-19] MEDS: Atorvastatin Calcium 20 MG TAB PO SCH (21:40)
[2021-07-19] MEDS: Tamsulosin HCl 0.4 MG CAP PO SCH (21:40)
[2021-07-19] MEDS: Amiodarone 200 MG TAB PO SCH (21:40)
[2021-07-19] MEDS: Folic Acid 1 MG TAB PO SCH (21:40)
[2021-07-20 05:16] LABS: #Eosinphils 0.5 thou/uL (0.0-0.7); #Lymphocytes 1.6 thou/uL (1.20-3.40); #Monocytes 0.6 thou/uL (0.11-0.59); #Neutrophils 2.3 thou/uL (1.40-6.50); %Basophils 0.9 % (0.0-1.0); %Eosinophils 9.7 % (0.0-10.0); %Lymphocytes 31.3 % (21.0-51.0); %Monocytes 12.6 % (0.0-10.0); %Neutrophils 45.5 % (42.0-75.0); Hemoglobin 11.5 g/dL (14.0-18.0); Mean Corpuscular HGB CONC 33.3 g/dL (32.0-36.0); Mean Corpuscular Volume 87.1 fL (78.0-98.0); Mean Platelet Volume 8.8 fL (7.4-10.4); Platelet Count 181 thou/uL (130-400); RBC Distribution Width 14.1 % (11.5-14.5); Red Blood Cell (RBC) Count 3.95 mill/uL (4.70-6.10)
[2021-07-20 05:42] LABS: Anion Gap 12 mmol/L (10-20); BUN (Urea Nitrogen) 38 mg/dL (8.4-25.7); Calc. Creatinine Clearance 34 mL/min (70-130); Calcium 9.1 mg/dL (7.8-10.44); Carbon Dioxide 26 mmol/L (23-31); Chloride 102 mmol/L (98-107); Glucose 143 mg/dL (83-110); Potassium 4.5 mmol/L (3.5-5.1); Sodium 135 mmol/L (136-145)
[2021-07-20] MEDS: Cefdinir 300 MG CAP PO SCH ×2 (08:53→20:27)
[2021-07-20] MEDS: Cyanocobalamin (Vitamin B-12) 1,000 MCG TAB PO SCH (08:53)
[2021-07-20] MEDS: Carvedilol 3.125 MG TAB PO SCH ×2 (08:54→16:49)
[2021-07-20] MEDS: Ferrous Sulfate 325 MG TAB PO SCH ×2 (08:54→16:49)
[2021-07-20] MEDS: Apixaban 2.5 MG TAB PO SCH ×2 (08:54→20:27)
[2021-07-20] MEDS: Aspirin 81 mg Enteric Coated Tablet PO SCH (08:54)
[2021-07-20] MEDS: HumaLOG 300 UNITS/3 ML VIAL SC PRN (11:49)
[2021-07-20] MEDS: Folic Acid 1 MG TAB PO SCH (20:27)
[2021-07-20] MEDS: Tamsulosin HCl 0.4 MG CAP PO SCH (20:27)
[2021-07-20] MEDS: Atorvastatin Calcium 20 MG TAB PO SCH (20:27)
[2021-07-20] MEDS: Amiodarone 200 MG TAB PO SCH (20:27)
[2021-07-21 04:41] LABS: #Eosinphils 0.5 thou/uL (0.0-0.7); #Lymphocytes 1.4 thou/uL (1.20-3.40); #Monocytes 0.4 thou/uL (0.11-0.59); #Neutrophils 2.3 thou/uL (1.40-6.50); %Basophils 0.7 % (0.0-1.0); %Eosinophils 11.4 % (0.0-10.0); %Monocytes 9.2 % (0.0-10.0); %Neutrophils 48.8 % (42.0-75.0); Hemoglobin 10.8 g/dL (14.0-18.0); Mean Corpuscular Hemoglobin 28.3 pg (27.0-31.0); Mean Corpuscular Volume 88.5 fL (78.0-98.0); Mean Platelet Volume 8.9 fL (7.4-10.4); Platelet Count 190 thou/uL (130-400); RBC Distribution Width 14.1 % (11.5-14.5); White Blood Cell (WBC) Count 4.8 thou/uL (4.8-10.8)
[2021-07-21 05:05] LABS: Anion Gap 13 mmol/L (10-20); BUN (Urea Nitrogen) 41 mg/dL (8.4-25.7); Calc. Creatinine Clearance 33 mL/min (70-130); Calcium 8.7 mg/dL (7.8-10.44); Carbon Dioxide 23 mmol/L (23-31); Chloride 101 mmol/L (98-107); Glucose 213 mg/dL (83-110); Potassium 4.2 mmol/L (3.5-5.1); Sodium 133 mmol/L (136-145)
[2021-07-21] MEDS: HumaLOG 300 UNITS/3 ML VIAL SC PRN (06:24)
[2021-07-21] MEDS ORDERED: Labetalol HCl 100 MG/20 ML VIAL ONE (07:53)
[2021-07-21] MEDS: Ferrous Sulfate 325 MG TAB PO SCH ×2 (08:17→17:37)
[2021-07-21] MEDS: Carvedilol 3.125 MG TAB PO SCH ×2 (08:17→17:38)
[2021-07-21] MEDS: Aspirin 81 mg Enteric Coated Tablet PO SCH (08:17)
[2021-07-21] MEDS: Apixaban 2.5 MG TAB PO SCH ×2 (08:17→20:45)
[2021-07-21] MEDS: Cyanocobalamin (Vitamin B-12) 1,000 MCG TAB PO SCH (08:17)
[2021-07-21] MEDS: Cefdinir 300 MG CAP PO SCH ×2 (08:17→20:44)
[2021-07-21] MEDS: Folic Acid 1 MG TAB PO SCH (20:44)
[2021-07-21] MEDS: Amiodarone 200 MG TAB PO SCH (20:44)
[2021-07-21] MEDS: Atorvastatin Calcium 20 MG TAB PO SCH (20:44)
[2021-07-21] MEDS: Tamsulosin HCl 0.4 MG CAP PO SCH (20:45)
[2021-07-22 05:14] LABS: #Eosinphils 0.6 thou/uL (0.0-0.7); #Lymphocytes 1.8 thou/uL (1.20-3.40); #Monocytes 0.7 thou/uL (0.11-0.59); #Neutrophils 2.6 thou/uL (1.40-6.50); %Basophils 0.6 % (0.0-1.0); %Eosinophils 10.2 % (0.0-10.0); %Lymphocytes 31.6 % (21.0-51.0); %Monocytes 11.9 % (0.0-10.0); %Neutrophils 45.6 % (42.0-75.0); Hemoglobin 11.4 g/dL (14.0-18.0); Mean Corpuscular HGB CONC 32.5 g/dL (32.0-36.0); Mean Corpuscular Hemoglobin 28.5 pg (27.0-31.0); Mean Corpuscular Volume 87.8 fL (78.0-98.0); Mean Platelet Volume 8.4 fL (7.4-10.4); Platelet Count 197 thou/uL (130-400); RBC Distribution Width 13.9 % (11.5-14.5); Red Blood Cell (RBC) Count 4.01 mill/uL (4.70-6.10); White Blood Cell (WBC) Count 5.6 thou/uL (4.8-10.8)
[2021-07-22 05:28] LABS: Anion Gap 14 mmol/L (10-20); BUN (Urea Nitrogen) 37 mg/dL (8.4-25.7); Calc. Creatinine Clearance 32 mL/min (70-130); Calcium 9.2 mg/dL (7.8-10.44); Carbon Dioxide 25 mmol/L (23-31); Chloride 103 mmol/L (98-107); Glucose 120 mg/dL (83-110); Potassium 4.6 mmol/L (3.5-5.1); Sodium 137 mmol/L (136-145)
[2021-07-22] MEDS: Cyanocobalamin (Vitamin B-12) 1,000 MCG TAB PO SCH (08:35)
[2021-07-22] MEDS: Ferrous Sulfate 325 MG TAB PO SCH ×2 (08:35→16:04)
[2021-07-22] MEDS: Cefdinir 300 MG CAP PO SCH ×2 (08:35→20:53)
[2021-07-22] MEDS: Apixaban 2.5 MG TAB PO SCH ×2 (08:35→20:53)
[2021-07-22] MEDS: Aspirin 81 mg Enteric Coated Tablet PO SCH (08:35)
[2021-07-22] MEDS: Carvedilol 3.125 MG TAB PO SCH ×2 (08:35→16:05)
[2021-07-22] MEDS: HumaLOG 300 UNITS/3 ML VIAL SC PRN (12:41)
[2021-07-22] MEDS: Folic Acid 1 MG TAB PO SCH (20:53)
[2021-07-22] MEDS: Tamsulosin HCl 0.4 MG CAP PO SCH (20:53)
[2021-07-22] MEDS: Atorvastatin Calcium 20 MG TAB PO SCH (20:53)
[2021-07-22] MEDS: Amiodarone 200 MG TAB PO SCH (20:53)
[2021-07-23] MEDS: Aspirin 81 mg Enteric Coated Tablet PO SCH (10:13)
[2021-07-23] MEDS: Cefdinir 300 MG CAP PO SCH ×2 (10:13→21:11)
[2021-07-23] MEDS: Cyanocobalamin (Vitamin B-12) 1,000 MCG TAB PO SCH (10:13)
[2021-07-23] MEDS: Apixaban 2.5 MG TAB PO SCH ×2 (10:13→21:11)
[2021-07-23] MEDS: Ferrous Sulfate 325 MG TAB PO SCH ×2 (10:13→17:34)
[2021-07-23] MEDS: Carvedilol 3.125 MG TAB PO SCH ×3 (10:14→17:35)
[2021-07-23 12:02] LABS: SARS-CoV-2 PCR by NAA Not Detected (NotDetected)
[2021-07-23] MEDS: Folic Acid 1 MG TAB PO SCH (21:11)
[2021-07-23] MEDS: Atorvastatin Calcium 20 MG TAB PO SCH (21:11)
[2021-07-23] MEDS: Tamsulosin HCl 0.4 MG CAP PO SCH (21:11)
[2021-07-23] MEDS: Amiodarone 200 MG TAB PO SCH (21:11)
[2021-07-24] MEDS: Cyanocobalamin (Vitamin B-12) 1,000 MCG TAB PO SCH (08:35)
[2021-07-24] MEDS: Apixaban 2.5 MG TAB PO SCH (08:35)
[2021-07-24] MEDS: Carvedilol 3.125 MG TAB PO SCH ×2 (08:36→17:59)
[2021-07-24] MEDS: Ferrous Sulfate 325 MG TAB PO SCH ×2 (08:36→17:59)
[2021-07-24] MEDS: Aspirin 81 mg Enteric Coated Tablet PO SCH (08:36)
[2021-07-24] MEDS: Cefdinir 300 MG CAP PO SCH (08:36)
[2021-07-24] MEDS: Ergocalciferol 1.25 MG(50,000 UNITS) CAP PO SCH (08:42)
[2021-07-24 15:50] VITALS: BP 129/60; TEMP 97.9
== END 2021-07-24 18:21 | disposition home health service (06) | DRG 699 ==
LOC: SUATTDRO 04:30 → ERS 04:30 → 2SW 06:45 → OBSVTOIN 07-17 13:30
PROVIDERS: ADMIT Student in an Organized Health Care Education/Training Program; ATTEND Internal Medicine
DX: T83.511A Infection and inflammatory reaction due to indwelling urethral catheter, initial encounter (principal); N30.01 Acute cystitis with hematuria; I48.20 Chronic atrial fibrillation, unspecified; N17.9 Acute kidney failure, unspecified; Z20.822 Contact with and (suspected) exposure to COVID-19; N40.1 Benign prostatic hyperplasia with lower urinary tract symptoms; R33.8 Other retention of urine; I25.10 Atherosclerotic heart disease of native coronary artery without angina pectoris; E11.22 Type 2 diabetes mellitus with diabetic chronic kidney disease; N18.30 Chronic kidney disease, stage 3 unspecified; E53.8 Deficiency of other specified B group vitamins; D50.9 Iron deficiency anemia, unspecified; D63.1 Anemia in chronic kidney disease; I35.0 Nonrheumatic aortic (valve) stenosis; E78.5 Hyperlipidemia, unspecified; N28.1 Cyst of kidney, acquired; Y84.6 Urinary catheterization as the cause of abnormal reaction of the patient, or of later complication, without mention of misadventure at the time of the procedure; Z87.891 Personal history of nicotine dependence; Z79.84 Long term (current) use of oral hypoglycemic drugs; Z79.899 Other long term (current) drug therapy
CPT/HCPCS: 36415; 36416; 51702; 70450; 71045; 76770; 80048; 80053; 81003; 81015; 82306; 83605; 83690; 83735; 83880; 83970; 84443; 84484; 85025; 87086; 93005; 96365; J0696; J1815; J3475; J3490; J7050; U0003; U0005

== ENCOUNTER 2022-12-03 20:34 | Inpatient (IN) | payer MEDICARE, OTHER ==
[2022-12-03 23:51] LABS: Bacteria/HPF 4+ HPF (None Seen); Bilirubin Negative (Negative); Blood, Urine 3+ (Negative); Clarity Extra Turbid (Clear); Glucose, Urine (Dipstick) Normal (Negative); Ketone, Urine Negative (Negative); Leukocyte 500 Leu/uL (Negative); Nitrite Negative (Negative); Protein, Urine (Dipstick) 300 mg/dL (Neg-Trace); RBC/HPF 21-50 HPF (0-3); Specific Gravity, Urine 1.016 (1.002-1.036); Squamous Epithelial 0-3 HPF (0-3); Urobilinogen Normal mg/dL (Less than 2); WBC/HPF Greater than 50 HPF (0-3); pH, Urine 6.5 (5.0-9.0)
[2022-12-03 23:58] LABS: ALT (SGPT) 65 U/L (8-55); AST (SGOT) 195 U/L (5-34); Albumin 3.5 g/dL (3.4-4.8); Alkaline Phosphatase 88 U/L (40-110); Anion Gap 14 mmol/L (10-20); BUN (Urea Nitrogen) 35 mg/dL (8.4-25.7); Bilirubin, Total 1.1 mg/dL (0.2-1.2); Calc. Creatinine Clearance 0 mL/min (70-130); Calcium 9.3 mg/dL (7.8-10.44); Carbon Dioxide 21 mmol/L (23-31); Chloride 100 mmol/L (98-107); Estimated GFR 23; Globulin 4.8 g/dL (2.4-3.5); Glucose 247 mg/dL (83-110); Potassium 3.9 mmol/L (3.5-5.1); Protein, Total 8.3 g/dL (5.8-8.1); Sodium 131 mmol/L (136-145)
[2022-12-04] MEDS ORDERED: cefTRIAXone (ROCEPHIN) 1 GM VIAL ONE (00:20)
[2022-12-04 00:25] LABS: CK (CPK) 8511 U/L (30-200)
[2022-12-04 00:25] LABS: #Lymphocytes 0.9 thou/uL (1.20-3.40); #Monocytes 1.3 thou/uL (0.11-0.59); #Neutrophils 9.4 thou/uL (1.40-6.50); %Basophils 0.2 % (0.0-1.0); %Eosinophils 0.2 % (0.0-10.0); %Lymphocytes 7.7 % (21.0-51.0); %Monocytes 10.8 % (0.0-10.0); %Neutrophils 81.1 % (42.0-75.0); Hemoglobin 13.4 g/dL (14.0-18.0); Mean Corpuscular Hemoglobin 28.1 pg (27.0-31.0); Mean Corpuscular Volume 85.3 fl (78.0-98.0); Mean Platelet Volume 9.5 fL (7.4-10.4); Platelet Count 196 10x3/uL (130-400); RBC Distribution Width 13.8 % (11.5-14.5); Red Blood Cell (RBC) Count 4.77 mill/uL (4.70-6.10); White Blood Cell (WBC) Count 11.6 10x3/uL (4.8-10.8)
[2022-12-04 00:58] LABS: CKMB 17.5 ng/mL (0-6.6)
[2022-12-04] MEDS ORDERED: Acetaminophen 650 MG Suppository PR PRN (04:14)
[2022-12-04 04:17] VITALS: BMI 26.9
[2022-12-04] MEDS: Acetaminophen 325 MG TAB PO PRN (04:34)
[2022-12-04] MEDS: Sodium Chloride 0.9% 1,000 ML IV SCH ×2 (04:50→16:25)
[2022-12-04] MEDS: Cefepime 1 GM in Sodium Chloride 0.9% 100 ML IVPB SCH (04:50)
[2022-12-04 05:33] LABS: #Lymphocytes 0.6 thou/uL (1.20-3.40); #Neutrophils 7.7 thou/uL (1.40-6.50); %Basophils 0.4 % (0.0-1.0); %Eosinophils 0.2 % (0.0-10.0); %Lymphocytes 6.1 % (21.0-51.0); %Monocytes 10.4 % (0.0-10.0); %Neutrophils 82.9 % (42.0-75.0); Hemoglobin 12.1 g/dL (14.0-18.0); Mean Corpuscular HGB CONC 33.9 g/dL (32.0-36.0); Mean Corpuscular Hemoglobin 29.1 pg (27.0-31.0); Mean Corpuscular Volume 85.9 fl (78.0-98.0); Platelet Count 167 10x3/uL (130-400); RBC Distribution Width 13.5 % (11.5-14.5); Red Blood Cell (RBC) Count 4.16 mill/uL (4.70-6.10); White Blood Cell (WBC) Count 9.3 10x3/uL (4.8-10.8)
[2022-12-04 05:55] LABS: Troponin I 0.096 ng/mL (< 0.028)
[2022-12-04 05:56] LABS: Anion Gap 15 mmol/L (10-20); BUN (Urea Nitrogen) 34 mg/dL (8.4-25.7); Calc. Creatinine Clearance 26 mL/min (70-130); Calcium 8.4 mg/dL (7.8-10.44); Carbon Dioxide 16 mmol/L (23-31); Chloride 104 mmol/L (98-107); Estimated GFR 28; Glucose 173 mg/dL (83-110); Potassium 3.7 mmol/L (3.5-5.1); Sodium 131 mmol/L (136-145)
[2022-12-04 06:09] LABS: CK (CPK) 5516 U/L (30-200)
[2022-12-04] MEDS ORDERED: Non-Formulary Item 1 EACH (Acetaminophen [Tylenol] 325 MG Capsule) PO PRN (11:22)
[2022-12-04] MEDS ORDERED: traMADol HCl 50 MG TAB PO PRN (11:22)
[2022-12-04] MEDS ORDERED: Dextrose 50% Abboject 50 ML SYRINGE SLOW IVP PRN (11:24)
[2022-12-04] MEDS ORDERED: HumaLOG 300 UNITS/3 ML VIAL SC PRN (11:24)
[2022-12-04] MEDS ORDERED: Dextrose 5% in Water 1,000 ML IV PRN (11:24)
[2022-12-04] MEDS ORDERED: metFORMIN 500 MG TAB PO SCH (17:00)
[2022-12-04] MEDS: Ferrous Sulfate 325 MG TAB PO SCH (18:12)
[2022-12-04] MEDS ORDERED: Apixaban 5 MG TAB PO SCH (21:00)
[2022-12-04] MEDS ORDERED: Atorvastatin Calcium 20 MG TAB PO SCH (21:00)
[2022-12-04] MEDS: Amiodarone 200 MG TAB PO SCH (22:28)
[2022-12-04] MEDS: Magnesium Chloride 64 MG TAB PO SCH (22:28)
[2022-12-04] MEDS: Floranex 1 GM Packet PO SCH (22:28)
[2022-12-04] MEDS: Folic Acid 1 MG TAB PO SCH (22:29)
[2022-12-04] MEDS: Famotidine 20 MG TAB PO SCH (22:29)
[2022-12-04] MEDS: Montelukast Sodium 10 mg Tablet PO SCH (22:29)
[2022-12-04] MEDS: Multivit, Therapeutic 1 TAB PO SCH (22:29)
[2022-12-04] MEDS: Tamsulosin HCl 0.4 MG CAP PO SCH (22:29)
[2022-12-04] MEDS: Carvedilol 3.125 MG TAB PO SCH (22:29)
[2022-12-04] MEDS: Ascorbic Acid 500 mg Chewable Tablet PO SCH (22:29)
[2022-12-05] MEDS: Cefepime 1 GM in Sodium Chloride 0.9% 100 ML IVPB SCH (05:02)
[2022-12-05 07:20] LABS: #Eosinphils 0.1 thou/uL (0.0-0.7); #Lymphocytes 0.8 thou/uL (1.20-3.40); #Monocytes 0.9 thou/uL (0.11-0.59); #Neutrophils 4.6 thou/uL (1.40-6.50); %Basophils 0.3 % (0.0-1.0); %Eosinophils 0.9 % (0.0-10.0); %Monocytes 14.3 % (0.0-10.0); %Neutrophils 71.5 % (42.0-75.0); Hemoglobin 10.6 g/dL (14.0-18.0); Mean Corpuscular HGB CONC 34.3 g/dL (32.0-36.0); Mean Corpuscular Hemoglobin 29.7 pg (27.0-31.0); Mean Corpuscular Volume 86.6 fl (78.0-98.0); Mean Platelet Volume 9.6 fL (7.4-10.4); Platelet Count 133 10x3/uL (130-400); RBC Distribution Width 13.6 % (11.5-14.5); Red Blood Cell (RBC) Count 3.58 mill/uL (4.70-6.10); White Blood Cell (WBC) Count 6.4 10x3/uL (4.8-10.8)
[2022-12-05 08:07] LABS: ALT (SGPT) 41 U/L (8-55); AST (SGOT) 78 U/L (5-34); Albumin 2.7 g/dL (3.4-4.8); Alkaline Phosphatase 60 U/L (40-110); Anion Gap 12 mmol/L (10-20); BUN (Urea Nitrogen) 34 mg/dL (8.4-25.7); Bilirubin, Total 0.5 mg/dL (0.2-1.2); Calc. Creatinine Clearance 30 mL/min (70-130); Calcium 7.8 mg/dL (7.8-10.44); Carbon Dioxide 15 mmol/L (23-31); Chloride 103 mmol/L (98-107); Estimated GFR 33; Globulin 3.4 g/dL (2.4-3.5); Glucose 110 mg/dL (83-110); Potassium 3.2 mmol/L (3.5-5.1); Protein, Total 6.1 g/dL (5.8-8.1); Sodium 127 mmol/L (136-145)
[2022-12-05] MEDS: Cyanocobalamin (Vitamin B-12) 1,000 MCG TAB PO SCH (08:46)
[2022-12-05] MEDS: Ascorbic Acid 500 mg Chewable Tablet PO SCH ×2 (08:46→21:59)
[2022-12-05] MEDS: Carvedilol 3.125 MG TAB PO SCH ×2 (08:46→22:15)
[2022-12-05] MEDS: Ferrous Sulfate 325 MG TAB PO SCH ×2 (08:46→17:43)
[2022-12-05] MEDS: Magnesium Chloride 64 MG TAB PO SCH ×2 (08:46→21:59)
[2022-12-05] MEDS: Aspirin 81 mg Enteric Coated Tablet PO SCH (08:46)
[2022-12-05] MEDS ORDERED: Potassium Chloride 20 MEQ TAB PO SCH (09:45)
[2022-12-05] MEDS: NS 0.9% w/ 20 MEQ KCL 1,000 ML/1,000 ML BAG IV SCH ×2 (10:50→22:02)
[2022-12-05] MEDS ORDERED: Sodium Chloride 0.9% 500 ML IV SCH (19:15)
[2022-12-05] MEDS: Tamsulosin HCl 0.4 MG CAP PO SCH (21:59)
[2022-12-05] MEDS: Amiodarone 200 MG TAB PO SCH (21:59)
[2022-12-05] MEDS: Montelukast Sodium 10 mg Tablet PO SCH (21:59)
[2022-12-05] MEDS: Floranex 1 GM Packet PO SCH (21:59)
[2022-12-05] MEDS: Famotidine 20 MG TAB PO SCH (21:59)
[2022-12-05] MEDS: Folic Acid 1 MG TAB PO SCH (21:59)
[2022-12-05] MEDS: Multivit, Therapeutic 1 TAB PO SCH (21:59)
[2022-12-06] MEDS: Cefepime 1 GM in Sodium Chloride 0.9% 100 ML IVPB SCH (05:21)
[2022-12-06 07:00] LABS: Anion Gap 11 mmol/L (10-20); BUN (Urea Nitrogen) 36 mg/dL (8.4-25.7); Calc. Creatinine Clearance 33 mL/min (70-130); Calcium 7.8 mg/dL (7.8-10.44); Carbon Dioxide 15 mmol/L (23-31); Chloride 109 mmol/L (98-107); Estimated GFR 37; Glucose 118 mg/dL (83-110); Magnesium 1.7 mg/dL (1.6-2.6); Sodium 131 mmol/L (136-145)
[2022-12-06] MEDS: Cyanocobalamin (Vitamin B-12) 1,000 MCG TAB PO SCH (08:39)
[2022-12-06] MEDS: Carvedilol 3.125 MG TAB PO SCH ×2 (08:39→21:28)
[2022-12-06] MEDS: Magnesium Chloride 64 MG TAB PO SCH ×2 (08:39→21:29)
[2022-12-06] MEDS: Aspirin 81 mg Enteric Coated Tablet PO SCH (08:39)
[2022-12-06] MEDS: Ferrous Sulfate 325 MG TAB PO SCH ×2 (08:39→16:46)
[2022-12-06] MEDS: Ascorbic Acid 500 mg Chewable Tablet PO SCH ×2 (08:39→21:28)
[2022-12-06] MEDS: NS 0.9% w/ 20 MEQ KCL 1,000 ML/1,000 ML BAG IV SCH (12:27)
[2022-12-06] MEDS: Acetaminophen 325 MG TAB PO PRN (19:21)
[2022-12-06] MEDS ORDERED: Ondansetron PF 4 MG/2 ML Vial IVP PRN (19:21)
[2022-12-06] MEDS: Folic Acid 1 MG TAB PO SCH (21:28)
[2022-12-06] MEDS: Tamsulosin HCl 0.4 MG CAP PO SCH (21:28)
[2022-12-06] MEDS: Amiodarone 200 MG TAB PO SCH (21:28)
[2022-12-06] MEDS: Floranex 1 GM Packet PO SCH (21:28)
[2022-12-06] MEDS: Multivit, Therapeutic 1 TAB PO SCH (21:28)
[2022-12-06] MEDS: Famotidine 20 MG TAB PO SCH (21:28)
[2022-12-06] MEDS: Montelukast Sodium 10 mg Tablet PO SCH (21:28)
[2022-12-07] MEDS: NS 0.9% w/ 20 MEQ KCL 1,000 ML/1,000 ML BAG IV SCH ×2 (04:23→14:43)
[2022-12-07] MEDS: Cefepime 1 GM in Sodium Chloride 0.9% 100 ML IVPB SCH (04:24)
[2022-12-07] MEDS: Ferrous Sulfate 325 MG TAB PO SCH ×2 (10:11→16:07)
[2022-12-07] MEDS: Aspirin 81 mg Enteric Coated Tablet PO SCH (10:12)
[2022-12-07] MEDS: Carvedilol 3.125 MG TAB PO SCH ×2 (10:12→22:42)
[2022-12-07] MEDS: Cyanocobalamin (Vitamin B-12) 1,000 MCG TAB PO SCH (10:12)
[2022-12-07] MEDS: Magnesium Chloride 64 MG TAB PO SCH ×2 (10:12→22:41)
[2022-12-07] MEDS: Ascorbic Acid 500 mg Chewable Tablet PO SCH ×2 (10:12→22:41)
[2022-12-07 11:25] LABS: Anion Gap 12 mmol/L (10-20); BUN (Urea Nitrogen) 33 mg/dL (8.4-25.7); Calc. Creatinine Clearance 39 mL/min (70-130); Calcium 8.4 mg/dL (7.8-10.44); Carbon Dioxide 15 mmol/L (23-31); Chloride 113 mmol/L (98-107); Estimated GFR 45; Glucose 136 mg/dL (83-110); Potassium 4.6 mmol/L (3.5-5.1); Sodium 135 mmol/L (136-145)
[2022-12-07] MEDS: Vancomycin 1 GM in Premix Bag 1 BAG IVPB SCH (16:01)
[2022-12-07] MEDS ORDERED: Sodium Bicarbonate 75 MEQ in Sodium Chloride 0.45% 1,000 ML IV SCH (16:30)
[2022-12-07] MEDS ORDERED: Lorazepam 2 MG/ML VIAL SLOW IVP PRN (18:47)
[2022-12-07] MEDS ORDERED: Vancomycin 1 GM in Premix Bag 1 BAG IVPB SCH (21:00)
[2022-12-07] MEDS: Multivit, Therapeutic 1 TAB PO SCH (22:41)
[2022-12-07] MEDS: Folic Acid 1 MG TAB PO SCH (22:42)
[2022-12-07] MEDS: Montelukast Sodium 10 mg Tablet PO SCH (22:42)
[2022-12-07] MEDS: Famotidine 20 MG TAB PO SCH (22:42)
[2022-12-07] MEDS: Sodium Bicarbonate Tab 325 MG TAB PO SCH (22:42)
[2022-12-07] MEDS: Tamsulosin HCl 0.4 MG CAP PO SCH (22:42)
[2022-12-07] MEDS: Amiodarone 200 MG TAB PO SCH (22:42)
[2022-12-07] MEDS: Floranex 1 GM Packet PO SCH (22:42)
[2022-12-08] MEDS: Cefepime 1 GM in Sodium Chloride 0.9% 100 ML IVPB SCH ×2 (06:03→16:48)
[2022-12-08 06:55] LABS: Anion Gap 11 mmol/L (10-20); BUN (Urea Nitrogen) 28 mg/dL (8.4-25.7); Calc. Creatinine Clearance 43 mL/min (70-130); Calcium 8.6 mg/dL (7.8-10.44); Carbon Dioxide 20 mmol/L (23-31); Chloride 109 mmol/L (98-107); Estimated GFR 50; Glucose 119 mg/dL (83-110); Potassium 5.1 mmol/L (3.5-5.1); Sodium 135 mmol/L (136-145)
[2022-12-08] MEDS: Ascorbic Acid 500 mg Chewable Tablet PO SCH ×2 (09:54→22:32)
[2022-12-08] MEDS: Carvedilol 3.125 MG TAB PO SCH ×2 (09:54→22:32)
[2022-12-08] MEDS: Cyanocobalamin (Vitamin B-12) 1,000 MCG TAB PO SCH (09:54)
[2022-12-08] MEDS: Magnesium Chloride 64 MG TAB PO SCH ×2 (09:54→22:33)
[2022-12-08] MEDS: Sodium Bicarbonate Tab 325 MG TAB PO SCH ×2 (09:54→22:30)
[2022-12-08] MEDS: Aspirin 81 mg Enteric Coated Tablet PO SCH (09:54)
[2022-12-08] MEDS: Ferrous Sulfate 325 MG TAB PO SCH ×2 (09:54→16:48)
[2022-12-08] MEDS: Vancomycin 1 GM in Premix Bag 1 BAG IVPB SCH (14:53)
[2022-12-08] MEDS: Amiodarone 200 MG TAB PO SCH (22:30)
[2022-12-08] MEDS: Montelukast Sodium 10 mg Tablet PO SCH (22:30)
[2022-12-08] MEDS: Tamsulosin HCl 0.4 MG CAP PO SCH (22:31)
[2022-12-08] MEDS: Famotidine 20 MG TAB PO SCH (22:31)
[2022-12-08] MEDS: Folic Acid 1 MG TAB PO SCH (22:32)
[2022-12-08] MEDS: Multivit, Therapeutic 1 TAB PO SCH (22:33)
[2022-12-08] MEDS: Floranex 1 GM Packet PO SCH (22:33)
[2022-12-09] MEDS: Cefepime 1 GM in Sodium Chloride 0.9% 100 ML IVPB SCH ×2 (05:36→15:55)
[2022-12-09 07:06] LABS: Anion Gap 13 mmol/L (10-20); BUN (Urea Nitrogen) 27 mg/dL (8.4-25.7); CK (CPK) 130 U/L (30-200); Calc. Creatinine Clearance 39 mL/min (70-130); Calcium 8.6 mg/dL (7.8-10.44); Carbon Dioxide 19 mmol/L (23-31); Chloride 107 mmol/L (98-107); Estimated GFR 45; Glucose 112 mg/dL (83-110); Potassium 4.4 mmol/L (3.5-5.1); Sodium 135 mmol/L (136-145)
[2022-12-09] MEDS: Sodium Bicarbonate Tab 325 MG TAB PO SCH ×3 (08:15→21:57)
[2022-12-09] MEDS: Magnesium Chloride 64 MG TAB PO SCH ×2 (08:15→21:56)
[2022-12-09] MEDS: Ferrous Sulfate 325 MG TAB PO SCH ×2 (08:15→15:55)
[2022-12-09] MEDS: Cyanocobalamin (Vitamin B-12) 1,000 MCG TAB PO SCH (08:15)
[2022-12-09] MEDS: Carvedilol 3.125 MG TAB PO SCH ×2 (08:15→21:56)
[2022-12-09] MEDS: Aspirin 81 mg Enteric Coated Tablet PO SCH (08:15)
[2022-12-09] MEDS: Ascorbic Acid 500 mg Chewable Tablet PO SCH ×2 (08:15→21:58)
[2022-12-09] MEDS: Lactated Ringer's 1,000 ML IV SCH (14:15)
[2022-12-09] MEDS: Folic Acid 1 MG TAB PO SCH (21:57)
[2022-12-09] MEDS: Montelukast Sodium 10 mg Tablet PO SCH (21:57)
[2022-12-09] MEDS: Floranex 1 GM Packet PO SCH (21:57)
[2022-12-09] MEDS: Tamsulosin HCl 0.4 MG CAP PO SCH (21:58)
[2022-12-09] MEDS: Famotidine 20 MG TAB PO SCH (21:58)
[2022-12-09] MEDS: Amiodarone 200 MG TAB PO SCH (21:58)
[2022-12-09] MEDS: Multivit, Therapeutic 1 TAB PO SCH (21:58)
[2022-12-10] MEDS: Lactated Ringer's 1,000 ML IV SCH (04:18)
[2022-12-10] MEDS: Cefepime 1 GM in Sodium Chloride 0.9% 100 ML IVPB SCH (04:22)
[2022-12-10] MEDS: Carvedilol 3.125 MG TAB PO SCH (08:19)
[2022-12-10] MEDS: Aspirin 81 mg Enteric Coated Tablet PO SCH (08:19)
[2022-12-10] MEDS: Sodium Bicarbonate Tab 325 MG TAB PO SCH ×2 (08:19→14:22)
[2022-12-10] MEDS: Ferrous Sulfate 325 MG TAB PO SCH (08:19)
[2022-12-10] MEDS: Cyanocobalamin (Vitamin B-12) 1,000 MCG TAB PO SCH (08:19)
[2022-12-10] MEDS: Ascorbic Acid 500 mg Chewable Tablet PO SCH (08:19)
[2022-12-10] MEDS: Magnesium Chloride 64 MG TAB PO SCH (10:38)
[2022-12-10 16:15] VITALS: BP 139/65; TEMP 98.1
== END 2022-12-10 17:03 | DRG 698 ==
LOC: ERS 20:34 → T4-A 12-04 01:41 → OBSVTOIN 12-04 16:03
PROVIDERS: ADMIT Student in an Organized Health Care Education/Training Program; ATTEND Internal Medicine
DX: T83.518A Infection and inflammatory reaction due to other urinary catheter, initial encounter (principal); A41.52 Sepsis due to Pseudomonas; G93.41 Metabolic encephalopathy; A41.81 Sepsis due to Enterococcus; A41.89 Other specified sepsis; N39.0 Urinary tract infection, site not specified; I13.0 Hypertensive heart and chronic kidney disease with heart failure and stage 1 through stage 4 chronic kidney disease, or unspecified chronic kidney disease; N17.9 Acute kidney failure, unspecified; I24.8 Other forms of acute ischemic heart disease; E87.1 Hypo-osmolality and hyponatremia; K21.9 Gastro-esophageal reflux disease without esophagitis; N40.0 Benign prostatic hyperplasia without lower urinary tract symptoms; E11.22 Type 2 diabetes mellitus with diabetic chronic kidney disease; E78.5 Hyperlipidemia, unspecified; E86.0 Dehydration; Y84.6 Urinary catheterization as the cause of abnormal reaction of the patient, or of later complication, without mention of misadventure at the time of the procedure; N18.30 Chronic kidney disease, stage 3 unspecified; T79.6XXA Traumatic ischemia of muscle, initial encounter; W17.89XA Other fall from one level to another, initial encounter; E87.6 Hypokalemia; I50.9 Heart failure, unspecified
CPT/HCPCS: 36415; 36416; 51702; 70450; 71045; 72125; 72170; 76705; 80048; 80053; 81003; 81015; 82550; 82553; 83605; 83735; 83880; 84484; 85025; 87077; 87086; 87186; 93005; 93306; 96361; 96365; 96367; G0378; J0692; J0696; J1815; J2060; J2405; J3370-JW; J3480; J3490; J7030; J7050; J7120